=== PATIENT | female | born 1930 | race Caucasian/White ===

== ENCOUNTER 2017-06-11 08:23 | Inpatient (IN) ==
[2017-06-11] MEDS ORDERED: Ondansetron 4 MG/2 ML VIAL IVP ONE ×2 (08:45→10:26)
[2017-06-11] MEDS ORDERED: OXYCODONE Oral CONC 10 MG/0.5 ML ORAL.SYG SL ONE (08:48)
--- NOTE | 2017-06-11 09:07 | Emergency Department Note ---
Disposition Clinical Impression: Hypokalemia Syncope Qualifiers: Syncope type: unspecified Qualified Code(s): R55 - Syncope and collapse Suspected closed fracture of hip Qualifiers: Laterality: right Qualified Code(s): R29.898 - Other symptoms and signs involving the musculoskeletal system Disposition: Admitted As Inpatient Condition: Fair Fall HPI - General Chief Complaint: ED Fall Stated Complaint: Right hip pain after fall Time Seen by Provider: 06/11/17 08:42 Source: patient, family, EMS Mode of arrival: EMS Limitations: no limitations Nursing Notes Reviewed: Yes Vital Signs Reviewed: Yes - History of Present Illness Pt Subjective Complaint: fall Onset (ago): hour(s) ("At 2am") Fall From: standing Fall Witnessed: no Place Fall Occurred: home Loss of Consciousness: none Prolonged Down Time?: yes, hour(s) (2am - 7am) Symptoms Prior to Fall: none Context: other (Patient states, "I just took a step and fell." She told her daughter that it felt like her hip broke and that's what caused her to fall.) Location of injury: hip (right) Location of injury - extremities: Right: hip Severity: moderate (better if not moving - also better since EMS gave her morphine) Quality: sharp, stabbing, aching Associated symptoms (after fall): Reports: unable to walk, lightheaded ("The pain was so bad it made me feel dizzy" ). Denies: headache, neck pain, numbness , weakness, chest pain, shortness of breath, abdominal pain, hematuria, vertigo , confusion - Related Data Home Medications Medication Instructions Recorded Confirmed Lisinopril/Hydrochlorothiazide 1 tab PO DAILY 12/25/15 06/11/17 [Zestoretic 10-12.5 mg Tablet] Cholecalciferol (D-3) [Vitamin D] 1,000 unit PO DAILY 06/11/17 06/11/17 Furosemide [Lasix] 40 mg PO DAILY 06/11/17 06/11/17 Previous Rx's Medication Instructions Recorded predniSONE [PredniSONE] 5 mg PO DAILY #30 tablet 12/25/15 Allergies Allergy/AdvReac Type Severity Reaction Status Date / Time No Known Allergies Allergy Verified 06/11/17 09:07 All systems ED: reviewed and negative except as stated. Review of Systems: As Per HPI Constitutional: Denies: fever, chills, weakness Eyes: Denies: vision change ENT ED: Denies: throat pain, congestion, dysphagia Cardiovascular: Reports: syncope ("Black out spells" per family - for several months. Has been seen by PCP for this. Speculate blood sugar dropping.). Denies : chest pain, palpitations, dyspnea on exertion, orthopnea, edema Respiratory: Denies: cough, dyspnea, wheezes, hemoptysis Gastrointestinal: Denies: abdominal pain, nausea, vomiting Genitourinary: Denies: urgency, dysuria, frequency, hematuria Musculoskeletal: Reports: arthralgia (right hip, recent increase in arhtralgias and myalgias due to d/c of prednisone). 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 Absent: scleral icterus, conjunctival injection - ENT ENT exam: mucous membranes moist - Neck Neck exam: Present: normal inspection, full ROM, trachea midline. Absent: tenderness, meningismus, lymphadenopathy - Expanded Neck Exam Neck exam focused ED: Absent: midline tenderness, paraspinal tenderness, tenderness (other), anterior neck swelling - Chest Chest inspection: Present: normal inspection, symmetric chest wall rise. Absent : tenderness - Respiratory Respiratory exam: Present: normal lung sounds bilaterally. Absent: respiratory distress - Cardiovascular Cardiovascular exam: Present: regular rate, normal rhythm, normal heart sounds - Abdominal Exam Abdominal exam: Present: soft, scar. Absent: tenderness, distention, guarding, rebound, rigidity, ascites, mass, pulsatile mass - Extremities Exam Extremities exam: Present: tenderness, normal capillary refill. Absent: full ROM, joint swelling, calf tenderness - Expanded Lower Extremity Exam Hip/Pelvis exam: Present: normal inspection, tenderness (Right - lateral), internal rotation (mild, right), pelvis stable. Absent: full ROM, swelling, abrasion, laceration, ecchymosis, deformity, crepitus, dislocation, erythema, external rotation, shortening Upper leg exam: Present: normal inspection. Absent: tenderness, swelling, ecchymosis, deformity, erythema Knee exam: Present: normal inspection. Absent: tenderness, swelling, abrasion, erythema Lower leg exam: Present: normal inspection. Absent: tenderness, swelling Ankle exam: Present: normal inspection, full ROM. Absent: tenderness, swelling Foot/toe exam: Present: normal inspection, full ROM. Absent: tenderness, swelling Neurovascular/Tendon exam: Present: normal capillary refill, normal fine/light touch. Absent: pulse deficit, motor deficit, sensory deficit, tendon deficit, extremity cold to touch, pallor, foot drop Gait: not tested/not observed - Back Exam Back exam: Present: normal inspection. Absent: tenderness, paraspinal tenderness, vertebral tenderness, sciatic notch tenderness (R), sciatic notch tenderness (L) - Neurological Exam Neurological exam: Present: alert, oriented X3, CN II-XII intact. Absent: motor sensory deficit - Psychiatric Psychiatric exam: Present: normal affect, normal mood - Skin Skin exam: Present: warm, dry, intact, normal color Course Course Narrative: Patient is brought in by squad for evaluation of right hip pain after a fall that occurred at 2 AM. Patient was finally able to get to her phone and called her son around 7 AM. He and his are going to bring the patient here by private auto. However, when they tried to lift her she had severe pain, so they called the squad. EMS gave the patient 2 mg of morphine. She arrives a and O 3, complaining of mild pain and states that it is "much better than when she was at the house." She she does complain of nausea and is requesting medication for that. She has pain in the right lateral hip. She points to the greater trochanteric area. Pain radiates around the hip. She denies head injury, loss of consciousness, neck pain, chest pain, shortness of breath, paresthesias, fever or recent illness. She has described two different stories as to how she ended up on the floor. She told her [id number] that she got up to walk to the bathroom and felt something break in her hip, which caused her to fall. She told EMS and us upon arrival that she just stepped down and fell and hurt her hip when she landed. She does have multiple skin tears to the right forearm but denies bony pain in the right upper extremity. She denies neck pain or back pain beyond her baseline chronic neck and back pain from severe arthritis. She is pleasant, conversant and cooperative with the exam. X-rays, labs and medications have been ordered. Suspect right hip fracture. Approximately 10 minutes after the initial survey, the tech was preparing to draw blood and called for the nurse. When we entered the room, the patient was resting calmly, still a and O 3 but complaining of increased nausea and stated that she was dizzy when she opened her eyes. The tech describes an episode that lasted approximately 10 seconds whereby the patient suddenly pushed her head and neck back against the bed, closed her eyes and did not respond. This was followed immediately by increased secretions in the mouth and transient confusion. She states that the entire episode lasted about 10 seconds. Fortunately, patient's son and [id number] arrived right after this happened. He states that the patient has had "spells like this." Several times over the past few months. She has been evaluated by her PCP for this. He speculates that she is having episodes of low blood sugar. Accu-Chek was ordered and patient was given juice. Accu-Chek is 134. Patient's oxygen saturation was transiently low, between 89 and 90. She was placed on 2 L oxygen by nasal cannula. Repeat blood pressure is stable, normal heart rate is normal. Initially, pain medication had been ordered per her request. This is now being held. CT of the head has been ordered. CT was read by the radiologist as no acute cerebral abnormality. Cerebral atrophy is noted. CT of the cervical spine was read by the radiologist as no acute abnormality. She does have significant arthritis. Chest x-ray shows mild pulmonary vascular congestion and cardiomegaly. X-ray of the hip is read by the radiologist as no acute bony abnormality. EKG shows a normal sinus rhythm, unchanged compared to previous, normal intervals, normal rate. No ST elevation or depression. The patient lives independently and is reportedly very active. She had a fall and has significant right hip pain. The right hip is very tender to palpation. She has known osteopenia. She is unable to bear weight on the right lower extremity. Still suspect right hip fracture. Patient has had multiple brief syncopal episodes lately including one while being evaluated here in the ER. Her fall at 2 AM today may have been secondary to a syncopal episode as well. We will consult ortho and admit the patient to medicine. - Consultations Consultation #1: Case was discussed with hospitalist. He is in agreement to admit the patient. Consultation #2: Case was discussed with Dr. Luna. He recommends MRI of the hips and pelvis and will consult on the patient Vital Signs Temperature 98.4 F 06/11/17 08:25 Pulse Rate 90 06/11/17 08:25 Respiratory Rate 18 06/11/17 08:25 Blood Pressure 133/69 06/11/17 08:25 O2 Sat by Pulse Oximetry 98 06/11/17 08:25 Temperature 98.5 F 06/11/17 15:00 Pulse Rate 87 06/11/17 15:00 Respiratory Rate 16 06/11/17 15:00 Blood Pressure 126/58 06/11/17 15:00 O2 Sat by Pulse Oximetry 96 06/11/17 15:00 Oxygen Delivery Oxygen Delivery Nasal Cannula Fall - Medical Records Medical records reviewed: Yes I reviewed the patient's medical records. - Lab Data Lab results reviewed: Yes I reviewed the patient's lab results. Lab results narrative: Laboratory Last Values WBC 13.3 K/mcL (4.3-11.1) H 06/11/17 09: RBC 4.08 M/mcL (3.82-4.97) 06/11/17 09:01 Hgb 12.7 g/dL (11.5-15.4) 06/11/17 09:01 Hct 36.8 % (35.3-44.9) 06/11/17 09: MCV 90.2 fL (83.0-100.0) 06/11/17 09:01 MCH 31.1 pg (28.0-33.3) 06/11/17 09:01 MCHC 34.5 g/dL (31.6-35.5) 06/11/17 09:01 RDW 14.2 % (11.5-14.5) 06/11/17 09:01 Plt Count 185 K/mcL (140-400) 06/11/17 09:01 MPV 10.9 fL (9.4-12.4) 06/11/17 09: Immature Gran % 1.4 % (0-4) 06/11/17 09: Seg Neutrophils % 79.3 % 06/11/17 09: Lymphocytes % 13.7 % 06/11/17 09: Monocytes % 4.9 % 06/11/17 09: Eosinophils % 0.1 % 06/11/17 09: Basophils % 0.6 % 06/11/17 09: Neutrophils # 10.5 K/mcL (1.6-8.9) H 06/11/17 09: Lymphocytes # 1.8 K/mcL (0.6-4.6) 06/11/17 09: Monocytes # 0.7 K/mcL (0.0-1.3) 06/11/17 09: Eosinophils # 0.0 K/mcL (0.0-0.6) 06/11/17 09: Basophils # 0.1 K/mcL (0.0-0.2) 06/11/17 09: Sodium 134 mEq/L (136-145) L 06/11/17 09: Potassium 3.0 mEq/L (3.5-5.1) L 06/11/17 09: Chloride 99 mEq/L (98-107) 06/11/17 09: Carbon Dioxide 26 mEq/L (23-29) 06/11/17 09: BUN 20 mg/dL (8-23) 06/11/17 09: Creatinine 0.98 mg/dL (0.60-1.20) 06/11/17 09: Est GFR ( Amer) > 60 (> 60) 06/11/17 09: Est GFR (Non-Af Amer) 54 (> 60) L 06/11/17 09: BUN/Creatinine Ratio 20 (6-26) 06/11/17 09:01 Glucose 136 mg/dL (70-105) H 06/11/17 09:01 POC Glucose 183 (58-89) H 06/11/17 15:53 Calculated Osmolality 283 (280-300) 06/11/17 09:01 Calcium 9.2 mg/dL (8.6-10.3) 06/11/17 09:01 Creatine Kinase 54 Units/L (30-223) 06/11/17 14:23 Troponin I < 0.03 ng/mL (< 0.04) 06/11/17 14:23 Urine Color Yellow (Yellow) 06/11/17 11:20 Urine Clarity Clear (Clear) 06/11/17 11:20 Urine pH 8.0 pH Units (5.0-8.0) 06/11/17 11:20 Ur Specific [place] 1.019 (1.010-1.025) 06/11/17 11:20 Urine Protein 30 mg/dL (Neg-Trace) H 06/11/17 11:20 Urine Glucose (UA) Normal mg/dL (Normal) 06/11/17 11:20 Urine Ketones Negative mg/dL (Negative) 06/11/17 11:20 Urine Blood Negative (Negative) 06/11/17 11:20 Urine Nitrite Negative (Negative) 06/11/17 11:20 Urine Bilirubin Negative (Negative) 06/11/17 11:20 Urine Urobilinogen Normal mg/dL (Normal) 06/11/17 11:20 Ur Leukocyte Esterase Negative (Negative) 06/11/17 11:20 Urine Microscopic RBC 0-3 per hpf (0-3) 06/11/17 11:20 Urine Microscopic WBC 0-3 per hpf (0-3) 06/11/17 11:20 Ur Squamous Epith Cells Moderate per lpf (None-Few) H 06/11/17 11:20 Urine Bacteria None Seen per hpf (None-Few) 06/11/17 11:20 Hyaline Casts None Seen per lpf (None-Few) 06/11/17 11:20 Ur Culture Indicated? NO (NO) 06/11/17 11:20 Result diagrams: 06/11/17 09:01 06/11/17 09:01 Lab Results 06/11/17 06/11/17 06/11/17 Range/Units 09:01 09:01 09:05 WBC 13.3 H (4.3-11.1) K/mcL RBC 4.08 (3.82-4.97) M/mcL Hgb 12.7 (11.5-15.4) g/dL Hct 36.8 (35.3-44.9) % MCV 90.2 (83.0-100.0) fL MCH 31.1 (28.0-33.3) pg MCHC 34.5 (31.6-35.5) g/dL RDW 14.2 (11.5-14.5) % Plt Count 185 (140-400) K/mcL MPV 10.9 (9.4-12.4) fL Immature Gran % 1.4 (0-4) % Seg Neutrophils % 79.3 % Lymphocytes % 13.7 % Monocytes % 4.9 % Eosinophils % 0.1 % Basophils % 0.6 % Neutrophils # 10.5 H (1.6-8.9) K/mcL Lymphocytes # 1.8 (0.6-4.6) K/mcL Monocytes # 0.7 (0.0-1.3) K/mcL Eosinophils # 0.0 (0.0-0.6) K/mcL Basophils # 0.1 (0.0-0.2) K/mcL Sodium 134 L (136-145) mEq/L Potassium 3.0 L (3.5-5.1) mEq/L Chloride 99 (98-107) mEq/L Carbon Dioxide 26 (23-29) mEq/L BUN 20 (8-23) mg/dL Creatinine 0.98 (0.60-1.20) mg/dL Est GFR ( Amer) > 60 (> 60) Est GFR (Non-Af Amer) 54 L (> 60) BUN/Creatinine Ratio 20 (6-26) Glucose 136 H (70-105) mg/dL POC Glucose 135 H (58-89) Calculated Osmolality 283 (280-300) Calcium 9.2 (8.6-10.3) mg/dL Creatine Kinase 69 (30-223) Units/L Troponin I < 0.03 (< 0.04) ng/mL Urine Color (Yellow) Urine Clarity (Clear) Urine pH (5.0-8.0) pH Units Ur Specific [place] (1.010-1.025) Urine Protein (Neg-Trace) mg/dL Urine Glucose (UA) (Normal) mg/dL Urine Ketones (Negative) mg/dL Urine Blood (Negative) Urine Nitrite (Negative) Urine Bilirubin (Negative) Urine Urobilinogen (Normal) mg/dL Ur Leukocyte Esterase (Negative) Urine Microscopic RBC (0-3) per hpf Urine Microscopic WBC (0-3) per hpf Ur Squamous Epith Cells (None-Few) per lpf Urine Bacteria (None-Few) per hpf Hyaline Casts (None-Few) per lpf Ur Culture Indicated? (NO) 06/11/17 06/11/17 06/11/17 Range/Units 11:20 14:23 14:23 WBC (4.3-11.1) K/mcL RBC (3.82-4.97) M/mcL Hgb (11.5-15.4) g/dL Hct (35.3-44.9) % MCV (83.0-100.0) fL MCH (28.0-33.3) pg MCHC (31.6-35.5) g/dL RDW (11.5-14.5) % Plt Count (140-400) K/mcL MPV (9.4-12.4) fL Immature Gran % (0-4) % Seg Neutrophils % % Lymphocytes % % Monocytes % % Eosinophils % % Basophils % % Neutrophils # (1.6-8.9) K/mcL Lymphocytes # (0.6-4.6) K/mcL Monocytes # (0.0-1.3) K/mcL Eosinophils # (0.0-0.6) K/mcL Basophils # (0.0-0.2) K/mcL Sodium (136-145) mEq/L Potassium (3.5-5.1) mEq/L Chloride (98-107) mEq/L Carbon Dioxide (23-29) mEq/L BUN (8-23) mg/dL Creatinine (0.60-1.20) mg/dL Est GFR ( Amer) (> 60) Est GFR (Non-Af Amer) (> 60) BUN/Creatinine Ratio (6-26) Glucose (70-105) mg/dL POC Glucose (58-89) Calculated Osmolality (280-300) Calcium (8.6-10.3) mg/dL Creatine Kinase 54 (30-223) Units/L Troponin I < 0.03 (< 0.04) ng/mL Urine Color Yellow (Yellow) Urine Clarity Clear (Clear) Urine pH 8.0 (5.0-8.0) pH Units Ur Specific [place] 1.019 (1.010-1.025) Urine Protein 30 H (Neg-Trace) mg/dL Urine Glucose (UA) Normal (Normal) mg/dL Urine Ketones Negative (Negative) mg/dL Urine Blood Negative (Negative) Urine Nitrite Negative (Negative) Urine Bilirubin Negative (Negative) Urine Urobilinogen Normal (Normal) mg/dL Ur Leukocyte Esterase Negative (Negative) Urine Microscopic RBC 0-3 (0-3) per hpf Urine Microscopic WBC 0-3 (0-3) per hpf Ur Squamous Epith Cells Moderate H (None-Few) per lpf Urine Bacteria None Seen (None-Few) per hpf Hyaline Casts None Seen (None-Few) per lpf Ur Culture Indicated? NO (NO) 06/11/17 Range/Units 15:53 WBC (4.3-11.1) K/mcL RBC (3.82-4.97) M/mcL Hgb (11.5-15.4) g/dL Hct (35.3-44.9) % MCV (83.0-100.0) fL MCH (28.0-33.3) pg MCHC (31.6-35.5) g/dL RDW (11.5-14.5) % Plt Count (140-400) K/mcL MPV (9.4-12.4) fL Immature Gran % (0-4) % Seg Neutrophils % % Lymphocytes % % Monocytes % % Eosinophils % % Basophils % % Neutrophils # (1.6-8.9) K/mcL Lymphocytes # (0.6-4.6) K/mcL Monocytes # (0.0-1.3) K/mcL Eosinophils # (0.0-0.6) K/mcL Basophils # (0.0-0.2) K/mcL Sodium (136-145) mEq/L Potassium (3.5-5.1) mEq/L Chloride (98-107) mEq/L Carbon Dioxide (23-29) mEq/L BUN (8-23) mg/dL Creatinine (0.60-1.20) mg/dL Est GFR ( Amer) (> 60) Est GFR (Non-Af Amer) (> 60) BUN/Creatinine Ratio (6-26) Glucose (70-105) mg/dL POC Glucose 183 H (58-89) Calculated Osmolality (280-300) Calcium (8.6-10.3) mg/dL Creatine Kinase (30-223) Units/L Troponin I (< 0.04) ng/mL Urine Color (Yellow) Urine Clarity (Clear) Urine pH (5.0-8.0) pH Units Ur Specific [place] (1.010-1.025) Urine Protein (Neg-Trace) mg/dL Urine Glucose (UA) (Normal) mg/dL Urine Ketones (Negative) mg/dL Urine Blood (Negative) Urine Nitrite (Negative) Urine Bilirubin (Negative) Urine Urobilinogen (Normal) mg/dL Ur Leukocyte Esterase (Negative) Urine Microscopic RBC (0-3) per hpf Urine Microscopic WBC (0-3) per hpf Ur Squamous Epith Cells (None-Few) per lpf Urine Bacteria (None-Few) per hpf Hyaline Casts (None-Few) per lpf Ur Culture Indicated? (NO) - Radiology Data Radiology results reviewed: Yes I reviewed the patient's radiology results. Chest X-Ray 06/11/17 08:45 IMPRESSION: Cardiomegaly. Suspected mild vascular congestion with small pleural effusions. D/ / 06/11/2017 09:51:59 Radha Wright MD / jarrett Interpreting Provider: Radha Wright MD Hip X-Ray 06/11/17 08:45 IMPRESSION: No acute abnormality in the pelvis or right hip. Given the degree of osteopenia, nondisplaced fractures may be radiographically occult. If pain or concern for fracture persists, consider MR imaging. D/ / 06/11/2017 10:08:14 Dayo Garcia MD / chrissy Interpreting Provider: Dayo Garcia MD Cervical Spine CT 06/11/17 09:07 IMPRESSION: 1. No acute abnormality in the cervical spine 2. Enlarged left thyroid lobe measuring 4 cm in size. Nonemergent thyroid ultrasound suggested to better characterize. RECOMMENDATIONS: Nonemergent thyroid ultrasound. D/ / Dayo Garcia MD / Dayo Garcia MD Interpreting Provider: Dayo Garcia MD Head CT 06/11/17 09:07 IMPRESSION: Cerebral atrophy. Chronic small vessel ischemic changes. No acute brain parenchymal abnormality. D/ / 06/11/2017 10:06:43 Radha Wright MD / chrissy Interpreting Provider: Radha Wright MD Hip MRI 06/11/17 10:59 IMPRESSION: 1. Acute nondisplaced right femoral neck fracture. 2. High-grade strain of the common origin of the right biceps femoris and semitendinosis hamstring muscles. This is age-indeterminate. 3. Mild right hip degenerative changes with a reactive effusion. D/ / Saúl Ramirez MD / Saúl Ramirez MD Interpreting Provider: Saúl Ramirez MD Pelvis MRI 06/11/17 10:59 IMPRESSION: 1. Acute nondisplaced right femoral neck fracture. 2. High-grade strain of the common origin of the right biceps femoris and semitendinosis hamstring muscles. This is age-indeterminate. 3. Mild right hip degenerative changes with a reactive effusion. D/ / Saúl Ramirez MD / Saúl Ramirez MD Interpreting Provider: Saúl Ramirez MD - EKG Data EKG attestation: Yes I reviewed and interpreted this EKG. EKG shows normal: sinus rhythm Rate: normal Rhythm: NSR [place]/QRS: normal Interpretation: unchanged when compared to prior tracing (date)
[2017-06-11 09:21] LABS: Basophils # 0.1 K/mcL (0.0-0.2); Basophils % 0.6 %; Eosinophils % 0.1 %; Hematocrit 36.8 % (35.3-44.9); Hemoglobin 12.7 g/dL (11.5-15.4); Immature Granulocytes % 1.4 % (0-4); Lymphocytes # 1.8 K/mcL (0.6-4.6); Lymphocytes % 13.7 %; Mean Corpuscular HGB Conc 34.5 g/dL (31.6-35.5); Mean Corpuscular Hemoglobin 31.1 pg (28.0-33.3); Mean Corpuscular Volume 90.2 fL (83.0-100.0); Mean Platelet Volume 10.9 fL (9.4-12.4); Monocytes # 0.7 K/mcL (0.0-1.3); Monocytes % 4.9 %; Neutrophils # 10.5 K/mcL (1.6-8.9); Platelet Count 185 K/mcL (140-400); Red Blood Count 4.08 M/mcL (3.82-4.97); Red Cell Distribution Width 14.2 % (11.5-14.5); Segmented Neutrophils % 79.3 %
[2017-06-11 09:39] LABS: Troponin I < 0.03 ng/mL (< 0.04)
[2017-06-11 09:44] LABS: BUN/Creatinine Ratio 20 (6-26); Blood Urea Nitrogen 20 mg/dL (8-23); Calcium 9.2 mg/dL (8.6-10.3); Carbon Dioxide 26 mEq/L (23-29); Chloride 99 mEq/L (98-107); Creatine Kinase 69 Units/L (30-223); Glucose 136 mg/dL (70-105); Osmolality,Calculated 283 (280-300); Sodium 134 mEq/L (136-145); eGFR For African Americans > 60 (> 60); eGFR For Non-African Americans 54 (> 60)
[2017-06-11] MEDS ORDERED: Acetaminophen 325 MG TABLET PO PRN (10:45)
[2017-06-11] MEDS ORDERED: traMADol 50 MG TABLET PO PRN (10:45)
[2017-06-11] MEDS ORDERED: Naloxone 0.4 MG/ML INJ IVP PRN (10:45)
[2017-06-11] MEDS ORDERED: Potassium Chloride 40 MEQ, Lidocaine 1% 2 ML in D5% in Water 500 ML IVPB ONE (10:47)
[2017-06-11 11:25] LABS: Bilirubin,Urine Negative (Negative); Blood,Urine Negative (Negative); Clarity,Urine Clear (Clear); Color,Urine Yellow (Yellow); Glucose,Urine (UA) Normal (Normal); Ketones,Urine Negative (Negative); Leukocyte Esterase,Urine Negative (Negative); Nitrite,Urine Negative (Negative); Protein,Urine 30 mg/dL (Neg-Trace); Specific Gravity,Urine 1.019 (1.010-1.025); Urobilinogen,Urine Normal (Normal)
[2017-06-11 11:30] LABS: Bacteria,Urine None Seen per hpf (None-Few); Hyaline Casts,Urine None Seen per lpf (None-Few); RBC,Urine 0-3 per hpf (0-3); Squamous Epithelial Cell,Urine Moderate per lpf (None-Few); WBC,Urine 0-3 per hpf (0-3)
--- NOTE | 2017-06-11 13:57 | Internal Med History&Physical ---
Date of Encounter: 06/11/17 Time of Encounter: 10:50 Assessment and Plan (1) Closed fracture of part of neck of femur Current visit: Yes Status: Acute Admit the pt into Med Surg Reviewed her Hip X ray did not show any acute fracture Reviewed MRI of Hip showed closed non displaced Rt femoral neck fracture Ortho consulted NPO after mid night She is intermediate to high risk pt for Major surgery like Hip repair given her chronic steroid dependency and immuno suppressive state IV hydration Pt is very sensitive to pain medication so will start her on Percocet PO PRN Cont home dose of steroids During surgery time may need stress dose steroids will talk to Ortho will get 2 D Echo Talked to pt's family at bed side and explained to them about current care Qualifiers: Qualified Code(s): S72.001A - Fracture of unspecified part of neck of right femur, initial encounter for closed fracture (2) Near syncope Current visit: Yes Status: Acute She denied of any LOC However she did mention of some near syncopal episodes recently so will do 2 D Echo and Carotid doppler placed her on Tele (3) Hypertension Current visit: No Status: Acute Stable with home medications Qualifiers: Hypertension type: essential hypertension Qualified Code(s): I10 - Essential (primary) hypertension (4) Polymyalgia rheumatica Current visit: No Status: Acute Resumed home dose of steroids (5) DVT prophylaxis Current visit: No Status: Acute On SQ heparin Internal Medicine - H&P: HPI Chief complaint: Fall, Rt hip pain Admitted From: Emergency Dept Plans for Post Hospital Care: Home History of present illness: Ms. Jade is a 86 year old female with known past medical history of Polymyalgia rheumatica on chronic steroid dependent, HTN, HLD, DJD and GI bleed pt presented to ER with severe Rt hip pain, started after a fall this morning at 2. 00 AM. Pt stated when she went to restroom, her Rt leg gave up and had fall , developed severe Rt hip pain. She denied any loss of consciousness. However she was not able to stand up, so she had crawl in to her living room to get the cell phone. She does have lacerations over Rt fore arm and Rt knee. Pt denied any CP / SOB Past Med Surg Social Fam HX - Past Medical History Medical history: CHF, GI bleed, hyperlipidemia, hypertension, other Psychiatric history: no psych history - Past Surgical History Surgical History: appendectomy, hysterectomy, other - Social History Smoking Status: Former smoker Smokeless Tobacco Status: No Alcohol use: none Drug use: none - Family History Mother Adopted: No Family Member Ethnicity: Non- Living Status: Hx Family Neurologic Disorders: Yes Internal Medicine - H&P: Meds Lisinopril/Hydrochlorothiazide [Zestoretic 10-12.5 mg Tablet] 1 tab PO DAILY [History] predniSONE [PredniSONE] 5 mg PO DAILY #30 tablet 12/25/15 [Rx] Cholecalciferol (D-3) [Vitamin D] 1,000 unit PO DAILY 06/11/17 [History] Furosemide [Lasix] 40 mg PO DAILY 06/11/17 [History] 3 Allergy/AdvReac Type Severity Reaction Status Date / Time No Known Allergies Allergy Verified 06/11/17 09:07 All Systems PM: A 10-system review of systems was performed and is negative for pertinent findings except as documented above in the HPI. Review of systems: All the systems are reviewed everything is benign except the systems and symptoms I mentioned in the history of present illness - Constitutional Vitals: Temp Pulse Resp BP Pulse Ox 98.4 F 95 22 121/55 95 06/11/17 08:25 06/11/17 10:40 06/11/17 10:40 06/11/17 10:40 06/11/17 10:40 General appearance: Present: cooperative, mild distress, A&O X 3, answers questions appropriately - Head Head exam: Present: atraumatic, normal inspection - Neck Neck exam general surgery: Present: supple - Respiratory Respiratory exam: Present: decreased breath sounds. Absent: rales, respiratory distress, rhonchi, wheezes - Cardiovascular Cardiovascular exam: Present: RRR, +S1, +S2. Absent: systolic murmur, tachycardia - GI/Abdominal GI/Abdominal exam: Present: normal bowel sounds, soft. Absent: rebound, rigid, tenderness - Extremities Exam Extremities exam: Present: tenderness (severe tenderness in Rt hip). Absent: calf tenderness, pedal edema Additional comments: unable to move Rt hip - Back Exam Back exam: Absent: CVA tenderness (L), CVA tenderness (R) - Neurological Exam Neurological exam: Present: alert, oriented X3, no focal deficits - Psychiatric Psychiatric exam: Present: depressed - Skin Additional comments: laceration over Rt knee and Rt forearm Internal Med - H&P Results - Labs CBC & Chem 7: 06/11/17 09:01 06/11/17 09:01 Labs: Urine 06/11/17 Range/Units 11:20 Urine Color Yellow (Yellow) Urine Clarity Clear (Clear) Urine pH 8.0 (5.0-8.0) pH Units Ur Specific [place] 1.019 (1.010-1.025) Urine Protein 30 H (Neg-Trace) mg/dL Urine Glucose (UA) Normal (Normal) mg/dL
[2017-06-11] MEDS ORDERED: Ondansetron 4 MG/2 ML VIAL IVP PRN (15:01)
[2017-06-11] MEDS ORDERED: *HR* Promethazine 25 MG/ML VIAL IVP PRN (15:14)
[2017-06-11] MEDS: 0.9 % Sodium Chloride 1,000 ML IVC SCH (15:28)
[2017-06-11] MEDS: *HR* OxyCODONE/APAP 5/325 TABLET PO PRN (15:52)
--- NOTE | 2017-06-11 16:56 | Orthopedic Consult Note ---
Date of Encounter: 06/11/17 Time of Encounter: 16:54 Assessment and Plan (1) Closed fracture of part of neck of femur Current Visit: Yes Status: Acute The diagnosis and treatment plan were discussed with the patient and her family. She has afracture of the right femoral neck. Previously she was walking both with and without a walker. Due to the acute nature of her fracture and her previous activity level surgical fixation with percutaneous pinning of the right hip is recommended. The risks and benefits of the procedure were reviewed with the family and the patient including but not limited to the risk of infection, neurovascular injury, continued pain or stiffness, failure of surgery, reinjury, or need for additional surgery, DVT, PE , general risks of anesthesia and loss of limb or life. No guarantees were given or implied and all questions were answered. The patient and family understands all the risks and does wish to proceed with written consent. We will proceed tomorrow. Nothing by mouth midnight with bed rest. Qualifiers: Encounter type: initial encounter Laterality: right Qualified Code(s): S72.001A - Fracture of unspecified part of neck of right femur, initial encounter for closed fracture History of Present Illness Chief complaint: R hip fracture HPI: Ms. Jade is a 86 year old female who had a fall this morning on to her right hip. She had immediate pain in the right hip. She was unable to ambulate. She denies any loss of consciousness before the fall. She has no new pain in any of her other extremities. Denies any numbness, tingling or neuro complaints. No chest pain or shortness of breath currently. Past Med Surg Social Fam HX - Past Medical History Medical history: CHF, GI bleed, hyperlipidemia, hypertension, other Psychiatric history: no psych history - Past Surgical History Surgical History: appendectomy, hysterectomy, other - Social History Smoking Status: Former smoker Smokeless Tobacco Status: No Alcohol use: none Drug use: none - Family History Mother Adopted: No Family Member Ethnicity: Non- Living Status: Hx Family Neurologic Disorders: Yes Medications and Allergies Lisinopril/Hydrochlorothiazide [Zestoretic 10-12.5 mg Tablet] 1 tab PO DAILY [History] predniSONE [PredniSONE] 5 mg PO DAILY #30 tablet 12/25/15 [Rx] Cholecalciferol (D-3) [Vitamin D] 1,000 unit PO DAILY 06/11/17 [History] Furosemide [Lasix] 40 mg PO DAILY 06/11/17 [History] 3 Allergy/AdvReac Type Severity Reaction Status Date / Time No Known Allergies Allergy Verified 06/11/17 09:07 All Systems Reviewed: The remainder of the systems were reviewed and are negative Physical Exam - Constitutional Vitals: Temp Pulse Resp BP Pulse Ox 98.5 F 87 16 126/58 96 06/11/17 15:00 06/11/17 15:00 06/11/17 15:00 06/11/17 15:00 06/11/17 15:00 Exam: Consult Exam: Constitutional -Vitals reviewed -The patient is well developed and well nourished. -The patient is well groomed. Psychiatric -The patient is fully alert and oriented x 3. Respiratory: -Respiratory effort normal Abdomen: -Soft abdomen -Non tender -Non distended: Left upper extremity: -No deformities. The overlying skin is intact. No obvious signs of acute trauma. -No tenderness to palpation throughout. -No significant pain with passive motion of the shoulder, elbow, wrist, and fingers within the limits of the bed. -Able to make an "OK" sign, cross the index and long fingers, and extend the thumb. -Sensation grossly intact to light touch throughout the median, radial, and ulnar distributions. -Radial pulse is present; Fingers have good capillary refill. Right upper extremity: -No deformities. The overlying skin is intact. No obvious signs of acute trauma. -No tenderness to palpation throughout. -No significant pain with passive motion of the shoulder, elbow, wrist, and fingers within the limits of the bed. -Able to make an "OK" sign, cross the index and long fingers, and extend the thumb. -Sensation grossly intact to light touch throughout the median, radial, and ulnar distributions. -Radial pulse is present; Fingers have good capillary refill. Left lower extremity: -No deformities. The overlying skin is intact. No obvious signs of acute trauma. -No tenderness to palpation throughout. -No pain with passive motion of the hip, knee, ankle, and toes within the limits of the bed. -No pain with axial loading of the thigh. -Able to dorsiflex and plantarflex the ankle and toes. -Sensation is grossly intact to light touch throughout the sural, saphenous, superficial peroneal, and deep peroneal distributions. -Toes have good capillary refill. Right lower extremity: -No deformities. The overlying skin is intact. -Pain with logroll and internal rotation at the hip. -Able to dorsiflex and plantarflex the ankle and toes. -Sensation is grossly intact to light touch throughout the sural, saphenous, superficial peroneal, and deep peroneal distributions. -Toes have good capillary refill. Results - Labs Result Diagrams: 06/11/17 09:06/11/17 09:01 Labs: Abnormal lab results WBC 13.3 K/mcL (4.3-11.1) H 06/11/17 09: Neutrophils # 10.5 K/mcL (1.6-8.9) H 06/11/17 09: Sodium 134 mEq/L (136-145) L 06/11/17 09: Potassium 3.0 mEq/L (3.5-5.1) L 06/11/17 09: Est GFR (Non-Af Amer) 54 (> 60) L 06/11/17 09:01 Glucose 136 mg/dL (70-105) H 06/11/17 09:01 POC Glucose 183 (58-89) H 06/11/17 15:53 Urine Protein 30 mg/dL (Neg-Trace) H 06/11/17 11:20 Ur Squamous Epith Cells Moderate per lpf (None-Few) H 06/11/17 11:20 All other labs normal. - Diagnostic results Hip MRI: report reviewed, image reviewed (Nondisplaced fracture of the right femoral neck) Consult Discharge Plan - Plan Referrals: Jose Manuel Diaz Jr, MD [Primary Care Provider] -
[2017-06-11] MEDS: *HR* Heparin 5,000 UNIT/ML VIAL SQ SCH (18:32)
[2017-06-12 01:53] LABS: Basophils # 0.1 K/mcL (0.0-0.2); Eosinophils % 0.2 %; Hemoglobin 11.9 g/dL (11.5-15.4); Immature Granulocytes % 1.8 % (0-4); Lymphocytes # 1.3 K/mcL (0.6-4.6); Lymphocytes % 13.2 %; Mean Corpuscular Hemoglobin 31.3 pg (28.0-33.3); Mean Corpuscular Volume 92.1 fL (83.0-100.0); Mean Platelet Volume 11.2 fL (9.4-12.4); Monocytes # 0.8 K/mcL (0.0-1.3); Neutrophils # 7.6 K/mcL (1.6-8.9); Platelet Count 161 K/mcL (140-400); Red Cell Distribution Width 14.7 % (11.5-14.5); Segmented Neutrophils % 75.8 %
[2017-06-12] MEDS: *HR* OxyCODONE/APAP 5/325 TABLET PO PRN (01:56)
[2017-06-12 02:11] LABS: Calcium 8.7 mg/dL (8.6-10.3); Chol/HDL Ratio 3.6 (0-4.9); Potassium 4.2 mEq/L (3.5-5.1)
[2017-06-12] MEDS: *HR* Heparin 5,000 UNIT/ML VIAL SQ SCH ×2 (04:23→16:40)
[2017-06-12] MEDS: 0.9 % Sodium Chloride 1,000 ML IVC SCH ×2 (08:24→19:56)
[2017-06-12 08:57] LABS: Albumin 3.2 g/dL (3.5-5.7); Albumin/Globulin Ratio 1.6 (1.1-2.2); Calcium 8.6 mg/dL (8.6-10.3); Total Protein 5.2 g/dL (6.4-8.9)
[2017-06-12] MEDS ORDERED: predniSONE 5 MG TABLET PO SCH (09:00)
[2017-06-12] MEDS ORDERED: Cholecalciferol (D-3) 1,000 UNIT TABLET PO SCH (09:00)
--- NOTE | 2017-06-12 09:50 | Anesthesia Evaluation PreOp ---
Date of Encounter: 06/12/17 Time of Encounter: 09:47 - Past History Planned Operation: right perc pinning of hip Cardiac History: CHF, HTN, Hyperlipidemia, Other (several near syncopal episodes ) Pulmonary History: Former smoker CURRICULUM AND ASSESSMENT COORDINATOR History: Other (4cm thyroid nodule found on CT.) Other Medical History: Renal (acute on chronic renal failure), Bleeding ( previous GI bleeding,), Other (polymyalgia rheumatica - chronic steriod tx) Anesthesia History: Past Anesthesia (appy, hyster,), Problems (PONV severe) Alcohol Use: none Drug use: none Medications and Allergies Lisinopril/Hydrochlorothiazide [Zestoretic 10-12.5 mg Tablet] 1 tab PO DAILY [History] predniSONE [PredniSONE] 5 mg PO DAILY #30 tablet 12/25/15 [Rx] Cholecalciferol (D-3) [Vitamin D] 1,000 unit PO DAILY 06/11/17 [History] Furosemide [Lasix] 40 mg PO DAILY 06/11/17 [History] 3 Allergy/AdvReac Type Severity Reaction Status Date / Time No Known Allergies Allergy Verified 06/11/17 09:07 - Meds/Allergy Pre-op Review Medications Reviewed: Yes Allergies Reviewed: Yes Beta Blockers on Current Med List: No Anesthesia Results - Labs 06/12/17 01:28 06/12/17 08:14 - Imaging EKG: report reviewed, image reviewed (SR) Anesthesia Exam Last Vital Signs Temp 100.1 F H 06/12/17 07:02 Pulse 88 06/12/17 07:02 Resp 18 06/12/17 07:02 BP 106/55 06/12/17 07:02 Pulse Ox 93 06/12/17 07:02 Weight: 79 kg NPO (# of Hours): > 8 hrs - HEENT Pupil (Motor): Pupils equal, EOMI Mallampati: III Teeth: Edentulous Denture Type: Upper: Complete, Lower: Complete Oral Opening: Greater than 3 - CURRICULUM AND ASSESSMENT COORDINATOR LOC: Oriented - Cardiac Rhythm: Regular Murmur: None - Pulmonary Breath Sounds: bilateral Clear Respiratory Effort: Symmetrical Anesthesia Assess/Plan ASA Score: 3 Modified Maddy Scale for Level of Consciousness: Cooperative, oriented, and tranquil Anesthetic Plan: General, Precautions (TIVA, stress dose steroids) Monitoring Plan: Standard Monitors Recovery Plan: PACU
[2017-06-12] MEDS ORDERED: Hydrocortisone Sodium Succ 100 MG/2 ML VIAL ONE (10:10)
[2017-06-12] MEDS ORDERED: *HR* PHENYLEPHRINE 1,000 MCG/10 ML SYRINGE IVP ONE (10:25)
[2017-06-12] MEDS ORDERED: Propofol 500 MG/50 ML INFUS..BTL ONE (10:25)
[2017-06-12] MEDS ORDERED: *HR* FentaNYL (PF) 100 MCG/2 ML VIAL ONE ×2 (10:31→11:17)
[2017-06-12] MEDS ORDERED: EPHEDrine 50 MG/ML VIAL ONE (10:32)
[2017-06-12] MEDS ORDERED: *HR* Etomidate 40 MG/20 ML VIAL IVP ONE (10:33)
[2017-06-12] MEDS ORDERED: Lacri-Lube 3.5 GM TUBE ONE (10:37)
[2017-06-12] MEDS ORDERED: Lidocaine -MPF 2% 2 ML VIAL ONE (10:55)
--- NOTE | 2017-06-12 10:58 | Internal Med Progress Note ---
Date of Encounter: 06/12/17 Time of Encounter: 10:56 - Assessment and plan (1) Closed fracture of part of neck of femur Current Visit: Yes Status: Acute Assessment and plan: - right femur neck closed fracture, revealed on MRI. - Ortho consulted and planned surgery today. Qualifiers: Encounter type: initial encounter Laterality: right Qualified Code(s): S72.001A - Fracture of unspecified part of neck of right femur, initial encounter for closed fracture (2) Near syncope Current Visit: Yes Status: Acute Assessment and plan: - pending ECHO and carotid doppler. continue tele monitoring. (3) Polymyalgia rheumatica Current Visit: No Status: Acute Assessment and plan: - continue steroid, no need for stress dose for surgery. (4) Hypertension Current Visit: No Status: Acute Assessment and plan: - well controlled. Qualifiers: Hypertension type: essential hypertension Qualified Code(s): I10 - Essential (primary) hypertension (5) Creatinine elevation Current Visit: Yes Status: Acute Assessment and plan: - sudden rise of creatinine, not sure this is lab error or true STEPHAN. - will repeat RFP today. - Time Spent With Patient Greater than 35 minutes - Subjective Interval history: Pt is going to have surgery today. - Constitutional Vitals: Temp Pulse Resp BP Pulse Ox 100.1 F H 88 18 106/55 93 06/12/17 07:02 06/12/17 07:02 06/12/17 07:02 06/12/17 07:02 06/12/17 07:02 General appearance: Present: cooperative, mild distress, A&O X 3, answers questions appropriately Exam: PHYSICAL EXAMINATION: GENERAL APPEARANCE: The patient is alert, oriented and in no acute distress. HEENT: Head is normocephalic. The sinuses are nontender. Pupils are equal and reactive. The nares are patent. Oropharynx clear without lesions. NECK: Supple without lymphadenopathy. HEART: Regular rate and rhythm. LUNGS: No crackles or wheezes are heard. ABDOMEN: Soft, nontender, nondistended with good bowel sounds heard. Inguinal area is normal. EXTREMITIES: right leg limited mobility and pain, positive pulse. NEUROLOGICAL: Gross nonfocal. SKIN: Warm and dry without any rash. Internal Medicine: Result - Labs CBC & Chem 7: 06/12/17 01:28 06/12/17 08:14 Labs: Short CBC 06/12/17 Range/Units 01:28 WBC 10.0 (4.3-11.1) K/mcL Hgb 11.9 (11.5-15.4) g/dL Hct 35.0 L (35.3-44.9) % Plt Count 161 (140-400) K/mcL Neutrophils # 7.6 (1.6-8.9) K/mcL BMP 06/12/17 06/12/17 01:28 08:14 Sodium 130 L 132 L Potassium 4.2 D 4.0 Chloride 100 100 Carbon Dioxide 21 L 25 BUN 27 H 27 H Creatinine 2.15 H 2.04 H Glucose 129 H 126 H Calcium 8.7 8.6 Cardiac Enzymes 06/11/17 Range/Units 20:55 Troponin I < 0.03 (< 0.04) ng/mL Liver Function 06/12/17 Range/Units 08:14 Total Bilirubin 1.0 (0.3-1.0) mg/dL AST 17 (13-39) Units/L ALT 24 (7-52) Units/L Alkaline Phosphatase 22 L (34-104) Units/L Albumin 3.2 L (3.5-5.7) g/dL Consult Discharge Plan - Plan Referrals: Jose Manuel Diaz Jr, MD [Primary Care Provider] -
[2017-06-12] MEDS ORDERED: Dexamethasone 4 MG/ML VIAL ONE (11:09)
[2017-06-12] MEDS ORDERED: Ondansetron 4 MG/2 ML VIAL ONE (11:09)
[2017-06-12] MEDS ORDERED: Heparin 1,000 UNITS/500 mL 500 ML ONE (11:17)
[2017-06-12] MEDS ORDERED: MORPHINE SUL Oral CONC 10 MG/0.5 ML ORAL.SYG SL PRN ×2 (11:40→12:30)
[2017-06-12] MEDS ORDERED: *HR* OxyCODONE Immed Rel 5 MG TABLET PO PRN ×2 (11:40→12:30)
[2017-06-12] MEDS ORDERED: *HR* Labetalol 20 MG/4 ML SYRINGE IVP PRN ×2 (11:40→12:30)
--- NOTE | 2017-06-12 11:53 | Physician Discharge Referral ---
- Diagnosis (1) Closed fracture of part of neck of femur Priority: Primary Status: Acute - Transfer Medications Home Medications: Lisinopril/Hydrochlorothiazide [Zestoretic 10-12.5 mg Tablet] 1 tab PO DAILY [History] predniSONE [PredniSONE] 5 mg PO DAILY #30 tablet 12/25/15 [Rx] Cholecalciferol (D-3) [Vitamin D] 1,000 unit PO DAILY 06/11/17 [History] Furosemide [Lasix] 40 mg PO DAILY 06/11/17 [History] Allergies/Adverse Reactions: 3 Allergy/AdvReac Type Severity Reaction Status Date / Time No Known Allergies Allergy Verified 06/11/17 09:07 - Respiratory Orders Smoking Cessation: Smoking cessation has been advised. For more information, call the [address] Tobacco Quit Line at 2-791-MLGK-NOW. - Mobility Orders Ambulate - Rehabiliation Orders Rehab Potential: Fair Rehab Orders: ROM Exercises, Evaluation for Physical Therapy, Evaluation for Occupational Therapy Other: DISCHARGE INSTRUCTIONS Dr. Luna Hip fracture surgery Wound Care -Keep wound / incision area clean and dry. -Keep dressing on, if it becomes saturated may change to a dry dressing -No baths or swimming until otherwise instructed. -After 10 days, you may begin to shower only if no drainage is present. No submerging the wound under standing water until cleared by your physician (no baths, hot tubs, swimming pools, etc). Sponge baths are the best way to perform personal hygiene while at the same time protecting the wound from moisture. -No scrubbing the wound. You may "pad dry" the wound, but do not rub, as this may open up he wound and pre-dispose to wound infection. -Do not apply lotions or creams to incision site, unless instructed otherwise. -Observe for redness, swelling, or drainage. Please call the clinic immediately if you have fevers, chills with warmth/redness surrounding wound site or if you notice pus drainage from the wound site Activity -No heavy lifting objects greater than 10 pounds. -No driving while on narcotic pain medication. -You may be weight-bear as tolerated on both of your lower extremities. -Use crutches or a walker for ambulation. Reducing the Risk of Blood Clots -You will need to complete a total 4 week course of enteric coated aspirin 325 mg twice daily. -Wear knee high compression hose 23 hours per day. Discharge Pain Medications -You will be given a prescription for pain medication. Wean off as tolerated. Do not wait to take the pain medication until the pain is severe, as it will be difficult to "catch up" once this occurs. The pain medication usually reaches its full effect ~1 hour after ingesting. -Your prescribed pain medication may contain Tylenol. You must be careful not to exceed 4,000 mg (4 g) of Tylenol (or generic equivalent), from all sources, within a single 24-hour period. -Some common side effects of the narcotic pain medications (Percocet, Oxycodone , Vicodin, etc) include nausea and itching. Benadryl is a great over the counter medication that helps calm your stomach, decreases your anxiety levels, and minimizes the itching. You can easily purchase this at your local pharmacy as an ttex-gjf-jejqefr medication. Please abide by the instructions as printed on t-he bottle. If your nausea persists, make sure to take small amounts of crackers or other quality measurement specialist foods. - Diet Orders Regular CERTIFICATION: I certify that the transfer of the above named patient to an Extended Care Facility is necessary for the continuing treatment of the diagnosis listed. The above information is true and accurate reflection of patient's current condition. Confidential - Redisclosure prohibited without a patient's written consent.
--- NOTE | 2017-06-12 11:56 | Orthopedic Operative Note ---
Date of procedure: 06/12/17 Pre-op diagnosis: R hip non-displaced femoral neck fracture Post-op diagnosis: same Procedure: 1. Right hip percutaneous pinning INDICATIONS: This is a 86-year-old female who had a mechanical fall and sustained a right non-displaced femoral neck fracture. After discussing the procedure at length, the patient and her family elected for operative management with a percutaneous pinning of the right hip. The risks and benefits of the procedure were fully explained. Those risks include but are not limited to, infection, neurovascular injury, continued pain, arthritis, stiffness, further injury, need for further surgery, DVT, PE, loss of limb, and loss of life. The patient understood all of these risks and wished to proceed. Informed consent was obtained. No guarantees were stated or implied. OPERATIVE REPORT: The patient was identified in the holding area. The right lower extremity was marked, the patient was taken to the operating room and general anesthetic was administered on the hospital bed. The patients head, neck and airway were protected by anesthesia through the case. The patient was then transferred to the fracture table and placed in the supine position with a well padded perineal post. All bony prominences were well padded. The right leg was attached to the traction device on the fracture bed. The left leg was then placed in a well leg acuna and positioned out of the way of fluoroscopy. We then obtained fluoroscopic images in AP and lateral planes confirming fracture reduction and alignment. The right lower extremity was then prepped and draped in the normal manner. Preoperative antibiotics were given prior to incision. A surgical time out protocol was then performed. We percutaneously placed a guidepin centrally and slightly inferior across the femoral neck up to the head, ensuring no penetration of the femoral head. We then made a 3 cm incision proximally from the guidepin, and placed 2 more guidepins, proximal and anterior and posterior to the first pin. Placement of the guidepins were confirmed on AP and lateral fluoroscopy. We then measured the appropriate screw lengths, and drilled and placed 3 6.5mm cannulated screws across the fracture site in an inverted triangle pattern. At this point we obtained final fluoroscopic images of the right hip in both AP and lateral planes. We then thoroughly irrigated the wound and closed the subcutaneous tissues with 2-0 strata fix. Skin was closed with zip line dressing. We then placed sterile dressings the patient was awoken by anesthesia and transferred to PACU in stable condition. Patient tolerated the procedure well. Postop plan: The patient will be transferred back to the floor and will be weight-bearing as tolerated postop. Complications: none Anesthesia: AMANDA Surgeon: Nnamdi Luna Was there an administration assistant present: No Estimated blood loss (cc): 10 Condition: stable Disposition: PACU
[2017-06-12] MEDS ORDERED: Naloxone 0.4 MG/ML INJ IVP PRN ×2 (12:30)
[2017-06-12] MEDS ORDERED: Acetaminophen 325 MG TABLET PO PRN (12:30)
[2017-06-12] MEDS ORDERED: *HR* OxyCODONE/APAP 5/325 TABLET PO PRN (12:30)
[2017-06-12] MEDS ORDERED: *HR* Promethazine 25 MG/ML VIAL IVP PRN (12:30)
[2017-06-12] MEDS ORDERED: Ondansetron 4 MG/2 ML VIAL IVP PRN (12:30)
--- NOTE | 2017-06-12 12:36 | Electrocardiograph Report ---
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
--- NOTE | 2017-06-12 12:56 | Anesthesia Evaluation Post Op ---
Date of Encounter: 06/12/17 Time of Encounter: 12:56 - Vital Signs Vital Signs: Last Vital Signs Temp 99.4 F 06/12/17 12:26 Pulse 94 06/12/17 12:26 Resp 18 06/12/17 12:26 BP 129/59 06/12/17 12:26 Pulse Ox 94 06/12/17 12:26 - Lungs Lungs: Clear Ascult./Percussion - Airway Airway: Non-obstructed - Cardiovascular Regular Rate - Mental Status Mental Status: Alert & Oriented, Answers Appropriately - Pain Pain Scale: 3 - Nausea Vomiting Nausea Vomiting: Not Present - Hydration Hydration: NPO, Mir catheter - Discharge PostOp Status: Transfer Patient to floor
[2017-06-12] MEDS: CeFAZolin Premix DUPLEX 2,000 MG/50 ML BAG IVPB SCH (16:39)
[2017-06-13] MEDS: CeFAZolin Premix DUPLEX 2,000 MG/50 ML BAG IVPB SCH (00:20)
[2017-06-13 04:01] LABS: Basophils % 0.2 %; Hemoglobin 10.8 g/dL (11.5-15.4); Immature Granulocytes % 1.2 % (0-4); Lymphocytes # 0.5 K/mcL (0.6-4.6); Lymphocytes % 4.6 %; Mean Corpuscular HGB Conc 33.8 g/dL (31.6-35.5); Mean Corpuscular Hemoglobin 30.9 pg (28.0-33.3); Mean Corpuscular Volume 91.4 fL (83.0-100.0); Mean Platelet Volume 11.1 fL (9.4-12.4); Monocytes # 0.4 K/mcL (0.0-1.3); Monocytes % 4.2 %; Neutrophils # 9.4 K/mcL (1.6-8.9); Platelet Count 148 K/mcL (140-400); Red Cell Distribution Width 14.1 % (11.5-14.5); Segmented Neutrophils % 89.8 %
[2017-06-13 04:29] LABS: Calcium 8.2 mg/dL (8.6-10.3)
[2017-06-13] MEDS: *HR* Heparin 5,000 UNIT/ML VIAL SQ SCH (05:36)
[2017-06-13] MEDS: Cholecalciferol (D-3) 1,000 UNIT TABLET PO SCH (08:07)
[2017-06-13] MEDS: predniSONE 5 MG TABLET PO SCH (08:07)
[2017-06-13] MEDS: Furosemide 40 MG TABLET PO SCH ×2 (08:07)
--- NOTE | 2017-06-13 08:18 | Internal Med Progress Note ---
Date of Encounter: 06/13/17 Time of Encounter: 08:15 - Assessment and plan (1) Closed fracture of part of neck of femur Current Visit: Yes Status: Acute Assessment and plan: secondary to fall at home. Right hip/pelvis with acute non-displaced right femoral neck fracture. S/p percutaneous pinning of the right hip on 06/12/[address] Luna (Ortho). evaluated by PT/OT who is recommending acute inpatient rehabilitation. PRN percocet for pain. Will need ASA 325mg BID for 4 weeks post- op for DVT prophylaxis per Ortho recommendations. MiraLAX for bowel regimen. Weightbearing as tolerated. Follow-up with Ortho outpatient. Qualifiers: Encounter type: initial encounter Laterality: right Qualified Code(s): S72.001A - Fracture of unspecified part of neck of right femur, initial encounter for closed fracture (2) STEPHAN (acute kidney injury) Current Visit: Yes Status: Acute Assessment and plan: Cr peaked at 2.15; baseline normal. Suspect prerenal as she was NPO combined with use of BRIGID/lasix and was possible hypotension. Renal function improving with IV fluids. Of note Hold home BRIGID. <omitor repeat renal function. (3) Hypertension Current Visit: No Status: Acute Assessment and plan: per hx. BP variable and now borderline/soft. Holding home BRIGID/HCTZ with STEPHAN. Patient refused morning dose of Lasix; states she only takes as needed at home. Monitor BP, resume home BP medication as BP allows. Qualifiers: Hypertension type: essential hypertension Qualified Code(s): I10 - Essential (primary) hypertension (4) Near syncope Current Visit: Yes Status: Acute Assessment and plan: Possible. Patient reported falling on morning of admission; unclear if syncopal versus mechanical. She does report being lightheaded and dizzy in the past but denies lightheadedness/dizziness when she fell. She notes room was dark which she go to the bathroom does not recall tripping over an object. Bilateral carotid Dopplers with 40-59% stenosis to LICA and nonstenotic plaque to KAYLAN. TTE with EF 60%, no valvular dysfunction and normal wall motion. Check orthostatics. (5) Polymyalgia rheumatica Current Visit: No Status: Acute Assessment and plan: per hx. Cont home prednisone. (6) DVT prophylaxis Current Visit: No Status: Acute Assessment and plan: ASA 325 mg BID for 4 weeks per Ortho - Subjective Interval history: Seen and examined at bedside. Patient is new to me, information obtained from chart review and patient report. Sitting up in bed eating breakfast, she complains of some mild right hip pain with activity/movement. Says as needed pain medicine is helping. No pain is under she is sitting still. No lower extremity numbness or tingling. - Constitutional Vitals: Temp Pulse Resp BP Pulse Ox 99.2 F 78 16 119/75 90 06/13/17 06:41 06/13/17 06:41 06/13/17 06:41 06/13/17 06:41 06/13/17 06:41 General appearance: Present: cooperative, A&O X 3, morbidly obese, no acute distress, answers questions appropriately - Head Head exam: Present: atraumatic, normocephalic - Eye Eye exam: Present: PERRL, conjuntiva pink, sclera anicteric Pupils: Present: PERRL - Neck Neck exam general surgery: Present: supple, trachea midline. Absent: lymphadenopathy - Respiratory Respiratory exam: Present: CTAB. Absent: accessory muscle use, rales, rhonchi, wheezes - Cardiovascular Cardiovascular exam: Present: RRR, +S1, +S2. Absent: diastolic murmur, gallop, rubs, systolic murmur - GI/Abdominal GI/Abdominal exam: Present: normal bowel sounds, soft, no peritoneal signs. Absent: distended, tenderness - Extremities Exam Extremities exam: Present: pedal edema, warm, radial pulses palpable and symmetrical. Absent: calf tenderness, cyanotic Additional comments: right hip incision clean, dry and intact. Trace, nonpitting edema to bilateral lower extremities - Neurological Exam Neurological exam: Present: CN II-XII intact, oriented X3, no focal deficits. Absent: pronater drift, facial droop, speech deficit - Skin Skin exam: Present: dry, intact Internal Medicine: Result - Labs CBC & Chem 7: 06/13/17 03:07 06/13/17 03:07 Labs: Short CBC 06/13/17 Range/Units 03:07 WBC 10.5 (4.3-11.1) K/mcL Hgb 10.8 L (11.5-15.4) g/dL Hct 32.0 L (35.3-44.9) % Plt Count 148 (140-400) K/mcL Neutrophils # 9.4 H (1.6-8.9) K/mcL BMP 06/12/17 06/13/17 08:14 03:07 Sodium 132 L 132 L Potassium 4.0 4.0 Chloride 100 104 Carbon Dioxide 25 23 BUN 27 H 24 H Creatinine 2.04 H 1.35 H Glucose 126 H 175 H Calcium 8.6 8.2 L Liver Function 06/12/17 Range/Units 08:14 Total Bilirubin 1.0 (0.3-1.0) mg/dL AST 17 (13-39) Units/L ALT 24 (7-52) Units/L Alkaline Phosphatase 22 L (34-104) Units/L Albumin 3.2 L (3.5-5.7) g/dL - Impressions Impressions Hip X-Ray 06/12/17 11:49 IMPRESSION: Status post ORIF of the patient's known nondisplaced femoral neck fracture. No immediate complication. D/ / 06/12/2017 12:29:32 Roro Smith MD / juanita Interpreting Provider: Roro Smith MD Fluoroscopy 06/12/17 11:56 IMPRESSION: Intraprocedural fluoroscopic spot images as above. See separate procedure report for more information. D/ / Kyler Cardoso MD / Kyler Cardoso MD Interpreting Provider: Kyler Cardoso MD - VTE Documentation of Mechanical Device: Intermittent pneumatic compression device Consult Discharge Plan - Plan Referrals: Jose Manuel Diaz Jr, MD [Primary Care Provider] -
[2017-06-13] MEDS: 0.9 % Sodium Chloride 1,000 ML IVC SCH (10:23)
--- NOTE | 2017-06-13 10:44 | Orthopedics Progress Note ---
Date of Encounter: 06/13/17 Time of Encounter: 10:42 - Assessment and Plan (1) Closed fracture of part of neck of femur Current Visit: Yes Status: Acute Qualifiers: Qualified Code(s): S72.001A - Fracture of unspecified part of neck of right femur, initial encounter for closed fracture Subjective Interval history: S: Doing well first day s/p R hip perc pinning. Pain well controlled. Has been up and walking with PT O: AFVSS GEN -- NAD, AAOx3 RLE Dress c/d/i No pain with PROM at hip DNVI s/s/t/sp/dp A/P: POD#1 s/p R hip CRPP WBAT with PT PO pain control Discharge planning for rehab Objective Vital signs: Vital Signs Temp Pulse Resp BP Pulse Ox 06/13/17 06:41 99.2 F 78 16 119/75 90 06/13/17 04:52 98.7 F 90 17 104/61 94 06/12/17 23:21 98.9 F 88 16 103/65 95 06/12/17 19:06 99.3 F 104 17 123/70 93 06/12/17 15:56 98.6 F 97 14 151/68 94 06/12/17 14:50 98.7 F 101 16 154/70 94 06/12/17 13:40 98.7 F 104 16 123/74 93 06/12/17 13:13 97.8 F 97 16 133/70 93 06/12/17 12:50 97.6 F 92 15 135/68 95 06/12/17 12:26 99.4 F 94 18 129/59 94 06/12/17 12:16 92 16 131/61 94 06/12/17 12:06 90 16 152/67 93 06/12/17 11:56 99.2 F 89 15 150/77 97 Intake and Output 06/12/17 06/13/17 06/13/17 22:59 07:59 15:59 Intake Total 1240 / 1240 Output Total Balance 1240 / 1240 Intake: IV Fluids 1000 / 1000 0.9 % Sodium Chloride 1,000 ML 1000 / 1000 @ 75 mls/hr IVC .[id number] BRANDY Rx #:[id number] Ancef Premix DUPLEX 2,000 mg In 50 ml @ 100 mls/hr IVPB Q8HR BRANDY Rx#:[id number] Oral 240 / 240 Output: Catheter Other: Meal Breakfast Percent of Meal Consumed 95% Stool Size Stool Consistency Stool Characteristics # Voids # Bowel Movements Weight Patient Weight 06/14/17 00:59 Weight 80.1 kg - Labs CBC & BMP: 06/13/17 03:07 06/13/17 03:07 Labs: Abnormal lab results RBC 3.50 M/mcL (3.82-4.97) L 06/13/17 03:07 Hgb 10.8 g/dL (11.5-15.4) L 06/13/17 03:07 Hct 32.0 % (35.3-44.9) L 06/13/17 03:07 Neutrophils # 9.4 K/mcL (1.6-8.9) H 06/13/17 03:07 Lymphocytes # 0.5 K/mcL (0.6-4.6) L 06/13/17 03:07 Sodium 132 mEq/L (136-145) L 06/13/17 03:07 BUN 24 mg/dL (8-23) H 06/13/17 03:07 Creatinine 1.35 mg/dL (0.60-1.20) H 06/13/17 03:07 Est GFR ( Amer) 45 (> 60) L 06/13/17 03:07 Est GFR (Non-Af Amer) 37 (> 60) L 06/13/17 03:07 Glucose 175 mg/dL (70-105) H 06/13/17 03:07 POC Glucose 183 (58-89) H 06/11/17 15:53 Calcium 8.2 mg/dL (8.6-10.3) L 06/13/17 03:07 Alkaline Phosphatase 22 Units/L (34-104) L 06/12/17 08:14 Serum Total Protein 5.2 g/dL (6.4-8.9) L 06/12/17 08:14 Albumin 3.2 g/dL (3.5-5.7) L 06/12/17 08:14 Globulin 2.0 g/dL (2.4-3.5) L 06/12/17 08:14 LDL Cholesterol, Calc 111 mg/dL (0-99) H 06/12/17 01:28 Urine Protein 30 mg/dL (Neg-Trace) H 06/11/17 11:20 Ur Squamous Epith Cells Moderate per lpf (None-Few) H 06/11/17 11:20 - VTE Documentation of Mechanical Device: Intermittent pneumatic compression device Consult Discharge Plan - Plan Additional Instructions: SENIOR CARE DISCHARGE INSTRUCTIONS Dr. Luna PROCEDURE PERFORMED Reduction and fixation of right hip. Incision care -Keep clear dressing in place. If dressing becomes saturated, may perform daily dressing changes to the right hip with dry gauze and either paper tape or medipore tape. -Avoid soaking wound in water (no hot tubs, bathtubs, swimming pools). -May shower after 2 weeks from surgery date. Carefully wash incision with soap and water. Gently pat it dry. Don't rub the incision, or apply creams or lotions. Sit on a shower stool when showering to keep from falling. Weight bearing status -Weightbearing as tolerated to the bilateral lower extremities. Medications -Pain medication per the discharging medical doctor -Enteric coated aspirin 325 mg by mouth twice per day for 28 days from the date of the surgery. [-Resume 50,000 units of vitamin D2 weekly and 1200 mg of calcium supplementation per day.] Other -Knee high MARISOL hose 23 hours per day -Consult physical and occupational therapy for mobilization. -Up to chair with assistance at least twice per day. -Follow up with your primary care physician to discuss testing for bone mineral density. Follow-Up -Follow-up with Dr. Luna in office in 2 weeks from the surgery date for a post-operative evaluation. -Call the office at [phone] to schedule or confirm your appointment. -Follow up with your primary care physician to discuss testing for bone mineral density. Referrals: Jose Manuel Diaz Jr, MD [Primary Care Provider] -
[2017-06-13] MEDS: Aspirin 325 MG TABLET PO SCH ×2 (12:50→20:34)
[2017-06-14] MEDS: 0.9 % Sodium Chloride 1,000 ML IVC SCH (00:23)
[2017-06-14 02:19] LABS: Hematocrit 30.2 % (35.3-44.9); Mean Corpuscular HGB Conc 33.8 g/dL (31.6-35.5); Mean Corpuscular Volume 91.8 fL (83.0-100.0); Platelet Count 138 K/mcL (140-400); Red Blood Count 3.29 M/mcL (3.82-4.97); Red Cell Distribution Width 14.4 % (11.5-14.5)
[2017-06-14 02:26] LABS: Hemoglobin 10.2 g/dL (11.5-15.4)
[2017-06-14 02:39] LABS: BUN/Creatinine Ratio 24 (6-26); Blood Urea Nitrogen 23 mg/dL (8-23); Calcium 8.5 mg/dL (8.6-10.3); Carbon Dioxide 23 mEq/L (23-29); Chloride 105 mEq/L (98-107); Glucose 131 mg/dL (70-105); Osmolality,Calculated 281 (280-300); Potassium 4.1 mEq/L (3.5-5.1); Sodium 133 mEq/L (136-145); eGFR For African Americans > 60 (> 60); eGFR For Non-African Americans 55 (> 60)
--- NOTE | 2017-06-14 07:44 | Orthopedics Progress Note ---
Date of Encounter: 06/14/17 Time of Encounter: 07:44 - Assessment and Plan (1) Closed fracture of part of neck of femur Current Visit: Yes Status: Acute Qualifiers: Encounter type: initial encounter Laterality: right Qualified Code(s): S72.001A - Fracture of unspecified part of neck of right femur, initial encounter for closed fracture Subjective Interval history: S: Resting comfortably, no overnight issues O: AFVSS GEN -- NAD, AAOx3 RLE Dress c/d/i No pain with PROM at hip DNVI s/s/t/sp/dp A/P: POD#2 s/p R hip CRPP WBAT with PT PO pain control Discharge planning for rehab Objective Vital signs: Vital Signs Temp Pulse Resp BP BP BP BP 06/14/17 06:48 98.5 F 87 16 138/76 06/14/17 05:00 98.8 F 80 16 136/68 06/14/17 01:23 98.8 F 77 16 132/69 06/13/17 19:16 98.6 F 79 17 113/68 06/13/17 16:20 104/57 107/63 125/66 06/13/17 15:51 98.5 F 88 18 104/57 06/13/17 10:48 99.1 F 85 17 118/71 Pulse Ox 06/14/17 06:48 94 06/14/17 05:00 92 06/14/17 01:23 94 06/13/17 19:16 94 06/13/17 16:20 06/13/17 15:51 93 06/13/17 10:48 92 Intake and Output 06/13/17 06/13/17 06/14/17 15:59 23:59 07:59 Intake Total 1240 / 1240 1000 / 1000 Balance 1240 / 1240 1000 / 1000 Intake: IV Fluids 1000 / 1000 1000 / 1000 0.9 % Sodium Chloride 1,000 ML 1000 / 1000 1000 / 1000 @ 75 mls/hr IVC .[id number] BRANDY Rx #:[id number] Oral 240 / 240 Other: Meal Breakfast Dinner Percent of Meal Consumed 95% 80% # Voids 1 1 # Bowel Movements 1 - Labs CBC & BMP: 06/14/17 01:24 06/14/17 01:24 Labs: Abnormal lab results RBC 3.29 M/mcL (3.82-4.97) L 06/14/17 01:24 Hgb 10.2 g/dL (11.5-15.4) L 06/14/17 01:24 Hct 30.2 % (35.3-44.9) L 06/14/17 01:24 Plt Count 138 K/mcL (140-400) L 06/14/17 01:24 Neutrophils # 9.4 K/mcL (1.6-8.9) H 06/13/17 03:07 Lymphocytes # 0.5 K/mcL (0.6-4.6) L 06/13/17 03:07 Sodium 133 mEq/L (136-145) L 06/14/17 01:24 Est GFR (Non-Af Amer) 55 (> 60) L 06/14/17 01:24 Glucose 131 mg/dL (70-105) H 06/14/17 01:24 POC Glucose 183 (58-89) H 06/11/17 15:53 Calcium 8.5 mg/dL (8.6-10.3) L 06/14/17 01:24 Alkaline Phosphatase 22 Units/L (34-104) L 06/12/17 08:14 Serum Total Protein 5.2 g/dL (6.4-8.9) L 06/12/17 08:14 Albumin 3.2 g/dL (3.5-5.7) L 06/12/17 08:14 Globulin 2.0 g/dL (2.4-3.5) L 06/12/17 08:14 LDL Cholesterol, Calc 111 mg/dL (0-99) H 06/12/17 01:28 Urine Protein 30 mg/dL (Neg-Trace) H 06/11/17 11:20 Ur Squamous Epith Cells Moderate per lpf (None-Few) H 06/11/17 11:20 - VTE Documentation of Mechanical Device: Intermittent pneumatic compression device Consult Discharge Plan - Plan Additional Instructions: GROUP HOME DISCHARGE INSTRUCTIONS Dr. Luna PROCEDURE PERFORMED Reduction and fixation of right hip. Incision care -Keep clear dressing in place. If dressing becomes saturated, may perform daily dressing changes to the right hip with dry gauze and either paper tape or medipore tape. -Avoid soaking wound in water (no hot tubs, bathtubs, swimming pools). -May shower after 2 weeks from surgery date. Carefully wash incision with soap and water. Gently pat it dry. Don't rub the incision, or apply creams or lotions. Sit on a shower stool when showering to keep from falling. Weight bearing status -Weightbearing as tolerated to the bilateral lower extremities. Medications -Pain medication per the discharging medical doctor -Enteric coated aspirin 325 mg by mouth twice per day for 28 days from the date of the surgery. [-Resume 50,000 units of vitamin D2 weekly and 1200 mg of calcium supplementation per day.] Other -Knee high MARISOL hose 23 hours per day -Consult physical and occupational therapy for mobilization. -Up to chair with assistance at least twice per day. -Follow up with your primary care physician to discuss testing for bone mineral density. Follow-Up -Follow-up with Dr. Luna in office in 2 weeks from the surgery date for a post-operative evaluation. -Call the office at [phone] to schedule or confirm your appointment. -Follow up with your primary care physician to discuss testing for bone mineral density. Referrals: Jose Manuel Diaz Jr, MD [Primary Care Provider] -
[2017-06-14] MEDS: Aspirin 325 MG TABLET PO SCH (07:56)
[2017-06-14] MEDS: Furosemide 40 MG TABLET PO SCH (07:57)
[2017-06-14] MEDS: Cholecalciferol (D-3) 1,000 UNIT TABLET PO SCH (07:58)
[2017-06-14] MEDS: predniSONE 5 MG TABLET PO SCH (07:58)
--- NOTE | 2017-06-14 08:22 | Discharge Summary ---
- NOTES TO OUTPATIENT PROVIDER Notes to Outpatient Provider: Enlarged left thyroid lobe measuring 4 cm in size. Nonemergent thyroid ultrasound suggested to better characterize. Bone mineral density recommended per Ortho. Orders not resulted at time of discharge: Pending orders 06/12/17 11:57 XR hip complete RT [XR] Routine 06/14/17 08:08 Occult Blood,Stool [BF] Stat 06/15/17 04:00 BMP [Basic Metabolic Panel] AM 0400 Complete Blood Count w/o Diff [HEME] AM 0400 06/16/17 04:00 BMP [Basic Metabolic Panel] AM 0400 Complete Blood Count w/o Diff [HEME] AM 04006/17/17 04:00 BMP [Basic Metabolic Panel] AM 0400 Complete Blood Count w/o Diff [HEME] AM 0400 06/18/17 04:00 BMP [Basic Metabolic Panel] AM 0400 Complete Blood Count w/o Diff [HEME] AM 0400 Date of Encounter: 06/14/17 Time of Encounter: 08:19 - Discharge Diagnosis (1) Closed fracture of part of neck of femur Priority: Primary Status: Acute Comments: secondary to fall at home. Right hip/pelvis with acute non-displaced right femoral neck fracture. S/p percutaneous pinning of the right hip on 06/12/[address] Luna (Ortho). evaluated by PT/OT who is recommending acute inpatient rehabilitation. PRN percocet for pain. Will need ASA 325mg BID for 4 weeks post- op for DVT prophylaxis per Ortho recommendations. MiraLAX for bowel regimen. Weightbearing as tolerated. Follow-up with Ortho outpatient Qualifiers: Encounter type: initial encounter Laterality: right Qualified Code(s): S72.001A - Fracture of unspecified part of neck of right femur, initial encounter for closed fracture (2) STEPHAN (acute kidney injury) Priority: Primary Status: Resolved Comments: Cr peaked at 2.15; baseline normal. Suspect pre-renal as she was NPO combined with use of BRIGID/lasix and soft/borderline BP with sequential hypotension. Renal function normalized with IV fluids. Resume home BRIGID. Renal function will need to be closely monitored. (3) Hypertension Priority: Secondary Status: Acute Comments: per hx. BP variable and was borderline/soft at times. Home BRIGID/HCTZ initially held with STEPHAN. BP now normotensicve. Resume home BRIGID/HCTZ combo. BP can be monitored at acute rehabilitation. Qualifiers: Hypertension type: essential hypertension Qualified Code(s): I10 - Essential (primary) hypertension (4) Near syncope Priority: Secondary Status: Acute Comments: Possible. Patient reported falling on morning of admission; unclear if syncopal versus mechanical. Reported hx of lightheaded/dizziness in the past but denied morning of fall. Patient stated room was dark when she go to the bathroom when fall occurred, did not recall tripping over an object. Head/c- spine CT non-acute. Bilateral carotid Dopplers with 40-59% stenosis to LICA and nonstenotic plaque to KAYLAN. TTE with EF 60%, no valvular dysfunction and normal wall motion. No evidence of orthostasis however suspect fall is multifactorial with possible component of orthostasis given her history. Encouraged adequate fluid intake. Can use compression stockings if patient agreeable. (5) Polymyalgia rheumatica Priority: Secondary Status: Chronic Comments: per hx. Cont home prednisone. PPI added with ASA as noted below. (6) Enlarged thyroid Priority: Primary Status: Acute Comments: C-spine CT showed an enlarged left thyroid lobe measuring 4 cm in size. Nonemergent thyroid ultrasound recommended to better characterize. This can be followed up outpatient (7) DVT prophylaxis Priority: Secondary Status: Acute Comments: ASA 325 mg BID for 4 weeks per Ortho. PPI added for GI prophylaxis Hospital course: Seen and examined at bedside. Says she feels well, only has minimal right hip pain that is worse with movement or activity. No chest pain or shortness of breath. Of note patient was initially refusing DVT prophylaxis with aspirin. Discussed with her at length the importance of taking to prevent DVT. After much encouragement she was not agreeable. Discharge discussed with: patient - Time Spent with Patient Total time spent providing and/or coordinating discharge services: Greater than 30 minutes (53 minutes spent on discharge) - Discharge Medications Prescriptions: OxyCODONE/APAP 5/325 [Percocet 5/325 MG] 1 each PO Q6HR PRN 7 Days #28 tablet PRN Reason: Pain Omeprazole [PriLOSEC] 40 mg PO DAILY@0630 #30 capsule.[address] Koenig Medications: Lisinopril/Hydrochlorothiazide [Zestoretic 10-12.5 mg Tablet] 1 tab PO DAILY [History] predniSONE [PredniSONE] 5 mg PO DAILY #30 tablet 12/25/15 [Rx] Cholecalciferol (D-3) [Vitamin D] 1,000 unit PO DAILY 06/11/17 [History] Furosemide [Lasix] 40 mg PO DAILY 06/11/17 [History] Aspirin 325 mg PO BID #0 tablet 06/14/17 [Rx] Omeprazole [PriLOSEC] 40 mg PO DAILY@0630 #30 capsule. 06/14/17 [Rx] OxyCODONE/APAP 5/325 [Percocet 5/325 MG] 1 each PO Q6HR PRN 7 Days #28 tablet [Rx] Polyethylene Glycol 3350 [MiraLAX] 17 gm PO DAILY PRN powd.pack 06/14/17 [Rx] Allergies/Adverse Reactions: 3 Allergy/AdvReac Type Severity Reaction Status Date / Time No Known Allergies Allergy Verified 06/11/17 09:07 Date of admission: 06/11/17 16:31 Primary care physician: Jose Manuel Diaz Jr, MD Consults: 06/12/17 12:30 Consult to Occupational Therapy [CONS] Routine Comment: Evaluate, develop and implement POC Reason for Consult: post hip surgery Consult to Physical Therapy [CONS] Routine Comment: Evaluate, develop and implement POC Reason for Consult: post hip surgery Consult to Pharmacy Helper [CONS] Routine Reason for SW Consult: post -op hip fracture RT Post Op Consult [CONS] Routine Discharging clinician: Ro Grossman Anticipated date of discharge: 06/14/17 - Constitutional Vitals: Temp Pulse Resp BP Pulse Ox 98.5 F 87 16 138/76 94 06/14/17 06:48 06/14/17 06:48 06/14/17 06:48 06/14/17 06:48 06/14/17 06:48 General appearance: Present: cooperative, A&O X 3, morbidly obese, no acute distress, answers questions appropriately - Head Head exam: Present: atraumatic, normocephalic - Eye Eye exam: Present: PERRL, conjuntiva pink, sclera anicteric Pupils: Present: PERRL - Neck Neck exam general surgery: Present: supple, trachea midline. Absent: lymphadenopathy - Respiratory Respiratory exam: Present: CTAB. Absent: accessory muscle use, rales, rhonchi, wheezes - Cardiovascular Cardiovascular exam: Present: RRR, +S1, +S2. Absent: diastolic murmur, gallop, rubs, systolic murmur - GI/Abdominal GI/Abdominal exam: Present: normal bowel sounds, soft, no peritoneal signs. Absent: distended, tenderness - Extremities Exam Extremities exam: Present: pedal edema, warm, radial pulses palpable and symmetrical. Absent: calf tenderness, cyanotic Additional comments: right hip incision C/D/I - Neurological Exam Neurological exam: Present: CN II-XII intact, oriented X3, no focal deficits. Absent: pronater drift, facial droop, speech deficit - Skin Skin exam: Present: dry, intact - Patient Status Disposition: Transfer Hospital Swing Bed Condition: Good Functional capacity at discharge: uses cane/walker Overall status at discharge: patient is progressing back to baseline - Discharge Instructions Follow Up With: Jose Manuel Diaz Jr, MD [Primary Care Provider] - Nnamdi Luna MD [Non-Partnered Physician] - (Follow-up with Dr. Luna in office in 2 weeks from the surgery date for a post-operative evaluation. Call the office at [phone] to schedule or confirm your appointment. ) Additional Instructions: HALFWAY DISCHARGE INSTRUCTIONS Dr. Luna PROCEDURE PERFORMED Reduction and fixation of right hip. Incision care -Keep clear dressing in place. If dressing becomes saturated, may perform daily dressing changes to the right hip with dry gauze and either paper tape or medipore tape. -Avoid soaking wound in water (no hot tubs, bathtubs, swimming pools). -May shower after 2 weeks from surgery date. Carefully wash incision with soap and water. Gently pat it dry. Don't rub the incision, or apply creams or lotions. Sit on a shower stool when showering to keep from falling. Weight bearing status -Weightbearing as tolerated to the bilateral lower extremities. Medications -Pain medication per the discharging medical doctor -Enteric coated aspirin 325 mg by mouth twice per day for 28 days from the date of the surgery. [-Resume 50,000 units of vitamin D2 weekly and 1200 mg of calcium supplementation per day.] Other -Knee high MARISOL hose 23 hours per day -Consult physical and occupational therapy for mobilization. -Up to chair with assistance at least twice per day. -Follow up with your primary care physician to discuss testing for bone mineral density. Follow-Up -Follow-up with Dr. Luna in office in 2 weeks from the surgery date for a post-operative evaluation. -Call the office at [phone] to schedule or confirm your appointment. -Follow up with your primary care physician to discuss testing for bone mineral density. - VTE Documentation of Mechanical Device: Intermittent pneumatic compression device
[2017-06-14 09:07] LABS: Thyroid Stimulating Hormone 0.764 mcIU/mL (0.340-5.600)
[2017-06-14 11:56] VITALS: BP 134/67
== END 2017-06-14 18:35 | disposition other institution (70) | DRG 481 ==
LOC: EMEROO 08:23 → 3NENU 08:23
PROVIDERS: ADMIT Family Medicine; ATTEND Internal Medicine

== ENCOUNTER 2019-07-24 13:12 | Inpatient (IN) ==
[2019-07-24] MEDS ORDERED: 0.9 % Sodium Chloride 1,000 ML IVC ONE (13:19)
[2019-07-24] MEDS ORDERED: Isovue-370 500 ML BOTTLE IVP ONE (13:19)
[2019-07-24 13:47] LABS: INR 1.1; Prothrombin Time 12.1 Seconds (9.4-12.1)
[2019-07-24 14:09] LABS: Alanine Aminotransferase 25 Units/L (7-52); Albumin 3.9 g/dL (3.5-5.7); Albumin/Globulin Ratio 1.8 (1.1-2.2); Alkaline Phosphatase 22 Units/L (34-104); Aspartate Amino Transferase 23 Units/L (13-39); BUN/Creatinine Ratio 37 (6-26); Bilirubin,Direct 0.1 mg/dL (0.0-0.2); Bilirubin,Indirect 0.8 mg/dL (0.0-1.0); Bilirubin,Total 0.9 mg/dL (0.3-1.0); Blood Urea Nitrogen 34 mg/dL (8-23); Calcium 9.5 mg/dL (8.6-10.3); Carbon Dioxide 24 mEq/L (23-29); Chloride 98 mEq/L (98-107); Globulin 2.2 g/dL (2.4-3.5); Glucose 135 mg/dL (70-105); Lipase 7 Units/L (11-82); Osmolality,Calculated 286 (280-300); Phosphorous 2.7 mg/dL (2.7-4.5); Potassium 3.6 mEq/L (3.5-5.1); Sodium 133 mEq/L (136-145); Total Protein 6.1 g/dL (6.4-8.9); Troponin I < 0.03 ng/mL (< 0.04); eGFR For African Americans > 60 (> 60); eGFR For Non-African Americans 58 (> 60)
[2019-07-24 14:10] LABS: Bilirubin,Urine Negative (Negative); Blood,Urine Trace (Negative); Clarity,Urine Cloudy (Clear); Color,Urine Yellow (Yellow); Glucose,Urine (UA) Normal (Normal); Ketones,Urine 15 mg/dL (Negative); Leukocyte Esterase,Urine Large (Negative); Nitrite,Urine Negative (Negative); Protein,Urine Trace mg/dL (Neg-Trace); Specific Gravity,Urine 1.022 (1.010-1.025); Urobilinogen,Urine Normal (Normal)
[2019-07-24 14:12] LABS: Basophils # 0.1 K/mcL (0.0-0.2); Basophils % 0.9 %; Eosinophils # 0.1 K/mcL (0.0-0.6); Eosinophils % 0.5 %; Hematocrit 39.1 % (35.3-44.9); Hemoglobin 12.8 g/dL (11.5-15.4); Immature Granulocytes % 1.7 % (0-4); Lymphocytes # 1.9 K/mcL (0.6-4.6); Lymphocytes % 14.8 %; Mean Corpuscular HGB Conc 32.7 g/dL (31.6-35.5); Mean Corpuscular Volume 94.7 fL (83.0-100.0); Mean Platelet Volume 11.4 fL (9.4-12.4); Monocytes # 1.1 K/mcL (0.0-1.3); Monocytes % 8.1 %; Neutrophils # 9.6 K/mcL (1.6-8.9); Platelet Count 156 K/mcL (140-400); Red Blood Count 4.13 M/mcL (3.82-4.97); Red Cell Distribution Width 13.1 % (11.5-14.5)
[2019-07-24 14:50] LABS: Squamous Epithelial Cell,Urine Moderate per lpf (None-Few)
[2019-07-24 14:51] LABS: Bacteria,Urine Many per hpf (None-Few); Hyaline Casts,Urine Few per lpf (None-Few); Renal Epithelial Cells,Urine Many per hpf (None-Few); WBC,Urine 50-100 per hpf (0-3)
[2019-07-24 14:52] LABS: RBC,Urine 0-3 per hpf (0-3)
[2019-07-24] MEDS ORDERED: cefTRIAXone 1,000 MG in Water for inj. (sterile) 10 ML IVP ONE (15:47)
[2019-07-24] MEDS ORDERED: Mag Hydrox/Al Hydrox/Simeth 30 ML UDC PO PRN (15:58)
[2019-07-24] MEDS ORDERED: Acetaminophen 325 MG TABLET PO PRN (15:58)
[2019-07-24] MEDS ORDERED: Ondansetron 4 MG/2 ML VIAL IVP PRN (15:58)
[2019-07-24] MEDS ORDERED: *HR* HYDROcodone/Acet 5/325 mg TABLET PO PRN (15:58)
[2019-07-24] MEDS ORDERED: Naloxone 0.4 MG/ML INJ IVP PRN (15:58)
[2019-07-24] MEDS ORDERED: MOM Conc 10 ML UD.LIQ PO PRN (15:58)
[2019-07-24] MEDS ORDERED: *HR* Promethazine 25 MG/ML VIAL IVP PRN (15:58)
[2019-07-24] MEDS: *HR* Heparin 5,000 UNIT/ML VIAL SQ SCH (18:39)
[2019-07-25 01:09] LABS: Basophils # 0.1 K/mcL (0.0-0.2); Eosinophils # 0.1 K/mcL (0.0-0.6); Eosinophils % 0.4 %; Hematocrit 36.1 % (35.3-44.9); Hemoglobin 11.9 g/dL (11.5-15.4); Immature Granulocytes % 1.2 % (0-4); Lymphocytes # 1.3 K/mcL (0.6-4.6); Lymphocytes % 11.6 %; Mean Corpuscular Hemoglobin 31.4 pg (28.0-33.3); Mean Corpuscular Volume 95.3 fL (83.0-100.0); Monocytes # 1.1 K/mcL (0.0-1.3); Monocytes % 9.6 %; Neutrophils # 8.8 K/mcL (1.6-8.9); Platelet Count 164 K/mcL (140-400); Red Blood Count 3.79 M/mcL (3.82-4.97); Red Cell Distribution Width 13.1 % (11.5-14.5); Segmented Neutrophils % 76.2 %; White Blood Count 11.5 K/mcL (4.3-11.1)
[2019-07-25 01:27] LABS: BUN/Creatinine Ratio 29 (6-26); Blood Urea Nitrogen 23 mg/dL (8-23); Calcium 8.7 mg/dL (8.6-10.3); Carbon Dioxide 24 mEq/L (23-29); Chloride 102 mEq/L (98-107); Glucose 149 mg/dL (70-105); Osmolality,Calculated 282 (280-300); Potassium 3.7 mEq/L (3.5-5.1); Sodium 133 mEq/L (136-145); eGFR For African Americans > 60 (> 60); eGFR For Non-African Americans > 60 (> 60)
[2019-07-25] MEDS: *HR* Heparin 5,000 UNIT/ML VIAL SQ SCH ×2 (05:00→16:41)
[2019-07-25] MEDS ORDERED: cefTRIAXone 1,000 MG in 0.9 % Sodium Chloride Mini Bag 100 ML IVPB SCH (09:00)
[2019-07-25] MEDS: predniSONE 5 MG TABLET PO SCH (09:39)
[2019-07-25] MEDS: PRESERVISION AREDS PO SCH (09:57)
[2019-07-25] MEDS: 0.9 % Sodium Chloride 1,000 ML IVC SCH (13:22)
[2019-07-25] MEDS ORDERED: cefTRIAXone 1,000 MG in Water for inj. (sterile) 10 ML IVP SCH (16:00)
[2019-07-25] MEDS: polyethylene glycoL 3350 17 GM POWD.PACK PO SCH (17:42)
[2019-07-26 02:34] LABS: Hematocrit 36.6 % (35.3-44.9); Hemoglobin 12.3 g/dL (11.5-15.4); Mean Corpuscular HGB Conc 33.6 g/dL (31.6-35.5); Mean Corpuscular Volume 95.3 fL (83.0-100.0); Platelet Count 161 K/mcL (140-400); Red Blood Count 3.84 M/mcL (3.82-4.97); Red Cell Distribution Width 13.1 % (11.5-14.5); White Blood Count 11.2 K/mcL (4.3-11.1)
[2019-07-26 02:56] LABS: BUN/Creatinine Ratio 23 (6-26); Blood Urea Nitrogen 18 mg/dL (8-23); Calcium 8.7 mg/dL (8.6-10.3); Carbon Dioxide 23 mEq/L (23-29); Chloride 100 mEq/L (98-107); Glucose 143 mg/dL (70-105); Osmolality,Calculated 282 (280-300); Potassium 3.6 mEq/L (3.5-5.1); Sodium 134 mEq/L (136-145); eGFR For African Americans > 60 (> 60); eGFR For Non-African Americans > 60 (> 60)
[2019-07-26 03:11] LABS: Thyroid Stimulating Hormone 1.169 mcIU/mL (0.340-5.600)
[2019-07-26] MEDS: 0.9 % Sodium Chloride 1,000 ML IVC SCH (03:24)
[2019-07-26] MEDS: *HR* Heparin 5,000 UNIT/ML VIAL SQ SCH (05:00)
[2019-07-26] MEDS: predniSONE 5 MG TABLET PO SCH (09:09)
[2019-07-26] MEDS: polyethylene glycoL 3350 17 GM POWD.PACK PO SCH (09:09)
[2019-07-26] MEDS: PRESERVISION AREDS PO SCH (09:10)
[2019-07-26 11:11] VITALS: BP 147/77
[2019-07-27] MEDS ORDERED: Multivit/Ca/Min/Fe/FA 1 TAB TABLET PO SCH (09:00)
== END 2019-07-26 15:16 | disposition home or self-care (01) | DRG 312 ==
LOC: EMEROOARM 13:12 → 3BNU 13:12
PROVIDERS: ADMIT Internal Medicine; ATTEND Internal Medicine

== ENCOUNTER 2019-12-15 09:37 | Inpatient (IN) ==
[2019-12-15] MEDS ORDERED: 0.9 % Sodium Chloride 500 ML IVC ONE ×2 (10:06→11:18)
[2019-12-15] MEDS ORDERED: Ondansetron 4 MG/2 ML VIAL IVP ONE (10:09)
[2019-12-15] MEDS ORDERED: Tdap (Boostrix) Vaccine 0.5 ML SYRINGE IM ONE (10:10)
[2019-12-15 10:46] LABS: Basophils # 0.1 K/mcL (0.0-0.2); Basophils % 0.8 %; Eosinophils % 0.1 %; Hematocrit 40.8 % (35.3-44.9); Hemoglobin 14.1 g/dL (11.5-15.4); Immature Granulocytes % 1.9 % (0-4); Lymphocytes # 1.8 K/mcL (0.6-4.6); Lymphocytes % 12.4 %; Mean Corpuscular HGB Conc 34.6 g/dL (31.6-35.5); Mean Corpuscular Hemoglobin 32.4 pg (28.0-33.3); Mean Corpuscular Volume 93.8 fL (83.0-100.0); Mean Platelet Volume 11.4 fL (9.4-12.4); Monocytes # 0.8 K/mcL (0.0-1.3); Monocytes % 5.7 %; Neutrophils # 11.3 K/mcL (1.6-8.9); Platelet Count 146 K/mcL (140-400); Red Blood Count 4.35 M/mcL (3.82-4.97); Red Cell Distribution Width 13.7 % (11.5-14.5); Segmented Neutrophils % 79.1 %; White Blood Count 14.3 K/mcL (4.3-11.1)
[2019-12-15 11:04] LABS: Albumin 3.8 g/dL (3.5-5.7); Albumin/Globulin Ratio 1.7 (1.1-2.2); Bilirubin,Direct 0.1 mg/dL (0.0-0.2); Bilirubin,Indirect 0.9 mg/dL (0.0-1.0); Calcium 9.4 mg/dL (8.6-10.3); Globulin 2.3 g/dL (2.4-3.5); Total Protein 6.1 g/dL (6.4-8.9); Troponin I 0.05 ng/mL (< 0.04)
[2019-12-15] MEDS ORDERED: Isovue-370 500 ML BOTTLE IVP ONE (11:17)
[2019-12-15 11:27] LABS: Bilirubin,Urine Negative (Negative); Blood,Urine Trace-intact (Negative); Clarity,Urine Clear (Clear); Color,Urine Yellow (Yellow); Glucose,Urine (UA) 500 mg/dL (Normal); Ketones,Urine Negative (Negative); Leukocyte Esterase,Urine Negative (Negative); Nitrite,Urine Negative (Negative); Protein,Urine Negative (Neg-Trace); Urobilinogen,Urine Normal (Normal)
[2019-12-15 11:32] LABS: RBC,Urine 0-3 per hpf (0-3); Squamous Epithelial Cell,Urine Few per hpf (None-Few); WBC,Urine 0-3 per hpf (0-3)
[2019-12-15] MEDS ORDERED: Ondansetron 4 MG/2 ML VIAL IVP PRN (12:49)
[2019-12-15] MEDS ORDERED: Naloxone 0.4 MG/ML INJ IVP PRN (12:49)
[2019-12-15] MEDS: cefTRIAXone 1,000 MG in Water for inj. (sterile) 10 ML IVP SCH (17:41)
[2019-12-15] MEDS: MetroNIDAZOLE 500 MG/100 ML 500 MG/100 ML BAG IVPB SCH ×2 (17:47→18:04)
[2019-12-15 19:09] LABS: Troponin I 0.24 ng/mL (< 0.04)
[2019-12-15] MEDS ORDERED: Albumin 25% 25gram/100mL 25 GM/100 ML IV.SOLN IVPB ONE (19:47)
[2019-12-15] MEDS: predniSONE 5 MG TABLET PO SCH (20:13)
[2019-12-15 21:03] LABS: Potassium 3.2 mEq/L (3.5-5.1)
[2019-12-15] MEDS: Vancomycin Oral Soln 125 MG/2.5 ML UDC PO SCH (22:03)
[2019-12-15] MEDS ORDERED: Potassium Chloride 20 MEQ, Lidocaine 1% 2 ML in 0.9 % Sodium Chloride 250 ML IVPB ONE (22:35)
[2019-12-16] MEDS: MetroNIDAZOLE 500 MG/100 ML 500 MG/100 ML BAG IVPB SCH ×3 (00:28→15:28)
[2019-12-16 00:59] LABS: Basophils # 0.1 K/mcL (0.0-0.2); Basophils % 0.5 %; Eosinophils % 0.1 %; Hematocrit 34.2 % (35.3-44.9); Immature Granulocytes % 1.4 % (0-4); Lymphocytes # 0.7 K/mcL (0.6-4.6); Lymphocytes % 4.2 %; Mean Corpuscular HGB Conc 34.2 g/dL (31.6-35.5); Mean Corpuscular Hemoglobin 32.4 pg (28.0-33.3); Mean Corpuscular Volume 94.7 fL (83.0-100.0); Mean Platelet Volume 11.9 fL (9.4-12.4); Monocytes # 0.7 K/mcL (0.0-1.3); Monocytes % 4.6 %; Neutrophils # 13.9 K/mcL (1.6-8.9); Platelet Count 139 K/mcL (140-400); Red Blood Count 3.61 M/mcL (3.82-4.97); Segmented Neutrophils % 89.2 %; White Blood Count 15.5 K/mcL (4.3-11.1)
[2019-12-16 01:02] LABS: Hemoglobin 11.7 g/dL (11.5-15.4)
[2019-12-16 01:20] LABS: Calcium 8.7 mg/dL (8.6-10.3); Potassium 3.5 mEq/L (3.5-5.1)
[2019-12-16] MEDS ORDERED: *HR* Heparin 5,000 UNIT/ML VIAL IVP PRN ×2 (03:29)
[2019-12-16] MEDS ORDERED: *HR* Heparin 5,000 UNIT/ML VIAL IVP ONE (03:29)
[2019-12-16] MEDS: Heparin 25,000UNIT/250ML 1/2NS 25,000 UNIT/250 ML IV.SOLN IVC SCH (05:35)
[2019-12-16 05:59] LABS: Hematocrit 38.4 % (35.3-44.9); Hemoglobin 12.5 g/dL (11.5-15.4); Mean Corpuscular HGB Conc 32.6 g/dL (31.6-35.5); Mean Corpuscular Hemoglobin 31.5 pg (28.0-33.3); Mean Corpuscular Volume 96.7 fL (83.0-100.0); Mean Platelet Volume 11.7 fL (9.4-12.4); Platelet Count 146 K/mcL (140-400); Red Blood Count 3.97 M/mcL (3.82-4.97); Red Cell Distribution Width 14.1 % (11.5-14.5); White Blood Count 15.7 K/mcL (4.3-11.1)
[2019-12-16 06:16] LABS: INR 1.2; Prothrombin Time 13.4 Seconds (9.4-12.1)
[2019-12-16 06:18] LABS: Heparin anti-factor XA UFH 1.6 IU/mL (0.30-0.70)
[2019-12-16] MEDS: predniSONE 5 MG TABLET PO SCH ×2 (07:47→20:54)
[2019-12-16] MEDS: cefTRIAXone 1,000 MG in Water for inj. (sterile) 10 ML IVP SCH (07:47)
[2019-12-16] MEDS: Vancomycin Oral Soln 125 MG/2.5 ML UDC PO SCH (08:11)
[2019-12-16] MEDS ORDERED: Perflutren Lipid Microsphere 1.3 ML in 0.9 % Sodium Chloride 8.7 ML IVP PRN (10:32)
[2019-12-16] MEDS ORDERED: 0.9 % Sodium Chloride 1,000 ML IVC SCH (10:45)
[2019-12-16 10:53] LABS: Hematocrit 35.9 % (35.3-44.9); Hemoglobin 11.6 g/dL (11.5-15.4)
[2019-12-16] MEDS: Aspirin 81 MG TAB.CHEW PO SCH (15:28)
[2019-12-16 17:27] LABS: Hemoglobin 12.1 g/dL (11.5-15.4)
[2019-12-17] MEDS: MetroNIDAZOLE 500 MG/100 ML 500 MG/100 ML BAG IVPB SCH ×4 (00:21→23:59)
[2019-12-17] MEDS: Heparin 25,000UNIT/250ML 1/2NS 25,000 UNIT/250 ML IV.SOLN IVC SCH ×2 (04:00→14:34)
[2019-12-17] MEDS: Aspirin 81 MG TAB.CHEW PO SCH (08:07)
[2019-12-17] MEDS: predniSONE 5 MG TABLET PO SCH ×2 (08:07→21:25)
[2019-12-17] MEDS: cefTRIAXone 1,000 MG in Water for inj. (sterile) 10 ML IVP SCH (08:08)
[2019-12-17 10:03] LABS: Basophils # 0.1 K/mcL (0.0-0.2); Basophils % 0.6 %; Eosinophils % 0.1 %; Hematocrit 36.1 % (35.3-44.9); Immature Granulocytes % 1.8 % (0-4); Lymphocytes # 0.6 K/mcL (0.6-4.6); Lymphocytes % 4.8 %; Mean Corpuscular HGB Conc 33.2 g/dL (31.6-35.5); Mean Corpuscular Hemoglobin 31.8 pg (28.0-33.3); Mean Corpuscular Volume 95.8 fL (83.0-100.0); Mean Platelet Volume 11.8 fL (9.4-12.4); Monocytes # 0.4 K/mcL (0.0-1.3); Monocytes % 2.9 %; Neutrophils # 11.7 K/mcL (1.6-8.9); Platelet Count 146 K/mcL (140-400); Red Blood Count 3.77 M/mcL (3.82-4.97); Red Cell Distribution Width 14.2 % (11.5-14.5); Segmented Neutrophils % 89.8 %
[2019-12-17 10:23] LABS: BUN/Creatinine Ratio 28 (6-26); Blood Urea Nitrogen 27 mg/dL (8-23); Carbon Dioxide 26 mEq/L (23-29); Chloride 102 mEq/L (98-107); Glucose 235 mg/dL (70-105); Osmolality,Calculated 295 (280-300); Potassium 3.9 mEq/L (3.5-5.1); Sodium 136 mEq/L (136-145); eGFR For African Americans > 60 (> 60); eGFR For Non-African Americans 55 (> 60)
[2019-12-18 06:55] LABS: Eosinophils % 0.1 %
[2019-12-18 06:57] LABS: Basophils # 0.1 K/mcL (0.0-0.2); Basophils % 0.8 %; Hematocrit 34.6 % (35.3-44.9); Hemoglobin 11.2 g/dL (11.5-15.4); Immature Platelets 7.7 % (1.1-6.1); Lymphocytes # 0.6 K/mcL (0.6-4.6); Lymphocytes % 5.8 %; Mean Corpuscular HGB Conc 32.4 g/dL (31.6-35.5); Mean Corpuscular Hemoglobin 31.3 pg (28.0-33.3); Mean Corpuscular Volume 96.6 fL (83.0-100.0); Mean Platelet Volume 11.6 fL (9.4-12.4); Monocytes # 0.4 K/mcL (0.0-1.3); Monocytes % 4.1 %; Neutrophils # 9.4 K/mcL (1.6-8.9); Platelet Count 143 K/mcL (140-400); Red Blood Count 3.58 M/mcL (3.82-4.97); Segmented Neutrophils % 87.2 %; White Blood Count 10.8 K/mcL (4.3-11.1)
[2019-12-18 07:44] LABS: BUN/Creatinine Ratio 29 (6-26); Blood Urea Nitrogen 27 mg/dL (8-23); Calcium 8.8 mg/dL (8.6-10.3); Carbon Dioxide 25 mEq/L (23-29); Chloride 106 mEq/L (98-107); Glucose 232 mg/dL (70-105); Osmolality,Calculated 297 (280-300); Potassium 4.5 mEq/L (3.5-5.1); Sodium 137 mEq/L (136-145); eGFR For African Americans > 60 (> 60); eGFR For Non-African Americans 57 (> 60)
[2019-12-18] MEDS: MetroNIDAZOLE 500 MG/100 ML 500 MG/100 ML BAG IVPB SCH (08:05)
[2019-12-18] MEDS: cefTRIAXone 1,000 MG in Water for inj. (sterile) 10 ML IVP SCH (08:07)
[2019-12-18] MEDS: predniSONE 5 MG TABLET PO SCH (08:08)
[2019-12-18] MEDS: Aspirin 81 MG TAB.CHEW PO SCH (08:09)
[2019-12-18 08:54] VITALS: BP 161/78
== END 2019-12-18 11:32 | disposition home or self-care (01) | DRG 281 ==
LOC: 2ANU 09:37 → EMEROOARM 09:37 → SUATTDRO 14:32 → 2ANU 15:20 → 2NNU 23:23 → 2ANU 12-17 21:38
PROVIDERS: ADMIT Student in an Organized Health Care Education/Training Program; ATTEND Family Medicine

== ENCOUNTER 2020-05-07 15:28 | Inpatient (IN) ==
[2020-05-07] MEDS ORDERED: Isovue-370 500 ML BOTTLE IVP ONE (17:44)
[2020-05-07] MEDS ORDERED: 0.9 % Sodium Chloride 1,000 ML IVC ONE (17:44)
[2020-05-07 17:46] LABS: Eosinophils % 0.1 %
[2020-05-07 17:48] LABS: Basophils # 0.2 K/mcL (0.0-0.2); Basophils % 1.3 %; Hemoglobin 14.2 g/dL (11.5-15.4); Immature Granulocytes % 4.1 % (0-4); Immature Platelets 16.9 % (1.1-6.1); Lymphocytes # 0.8 K/mcL (0.6-4.6); Lymphocytes % 6.3 %; Mean Corpuscular Hemoglobin 30.7 pg (28.0-33.3); Mean Corpuscular Volume 93.1 fL (83.0-100.0); Monocytes # 0.5 K/mcL (0.0-1.3); Monocytes % 3.8 %; Neutrophils # 10.2 K/mcL (1.6-8.9); Platelet Count 137 K/mcL (140-400); Red Blood Count 4.62 M/mcL (3.82-4.97); Red Cell Distribution Width 13.5 % (11.5-14.5); Segmented Neutrophils % 84.4 %; White Blood Count 12.1 K/mcL (4.3-11.1)
[2020-05-07 18:08] LABS: Calcium 9.5 mg/dL (8.6-10.3); Magnesium 2.1 mg/dL (1.6-2.6); Phosphorous 2.9 mg/dL (2.7-4.5); Potassium 4.7 mEq/L (3.5-5.1); Troponin I 0.05 ng/mL (< 0.04)
[2020-05-07] MEDS ORDERED: Insulin Regular, Human 100 UNIT/ML SUBQ ONE (18:38)
[2020-05-07 21:29] LABS: Bilirubin,Urine Negative (Negative); Blood,Urine Negative (Negative); Clarity,Urine Clear (Clear); Color,Urine Colorless (Yellow); Glucose,Urine (UA) >=1000 mg/dL (Normal); Ketones,Urine Trace mg/dL (Negative); Leukocyte Esterase,Urine Moderate (Negative); Mucus,Urine Few per lpf (None-Few); Nitrite,Urine Negative (Negative); Protein,Urine Negative (Neg-Trace); RBC,Urine 0-3 per hpf (0-3); Specific Gravity,Urine > 1.030 (1.010-1.025); Squamous Epithelial Cell,Urine Few per hpf (None-Few); Urobilinogen,Urine Normal (Normal)
[2020-05-07] MEDS ORDERED: Naloxone 0.4 MG/ML INJ IVP PRN (22:58)
[2020-05-07] MEDS ORDERED: Ondansetron 4 MG/2 ML VIAL IVP PRN (22:58)
[2020-05-07] MEDS ORDERED: Acetaminophen 325 MG TABLET PO PRN (22:58)
[2020-05-07] MEDS ORDERED: 0.9 % Sodium Chloride 1,000 ML IVC SCH (23:00)
[2020-05-07] MEDS ORDERED: Dextrose Gel 15 GM/37.5 ML TUBE PO PRN ×2 (23:02)
[2020-05-07] MEDS ORDERED: *HR* Dextrose 50 % in Water (Vial) 50 ML VIAL IVP PRN (23:02)
[2020-05-07] MEDS ORDERED: D5% in Water 1,000 ML IVC PRN (23:02)
[2020-05-08 03:51] LABS: Alanine Aminotransferase 37 Units/L (7-52); Albumin 3.2 g/dL (3.5-5.7); Albumin/Globulin Ratio 1.7 (1.1-2.2); Alkaline Phosphatase 26 Units/L (34-104); Aspartate Amino Transferase 21 Units/L (13-39); BUN/Creatinine Ratio 33 (6-26); Bilirubin,Total 0.7 mg/dL (0.3-1.0); Blood Urea Nitrogen 27 mg/dL (8-23); Calcium 8.7 mg/dL (8.6-10.3); Carbon Dioxide 26 mEq/L (23-29); Chloride 104 mEq/L (98-107); Globulin 1.9 g/dL (2.4-3.5); Glucose 139 mg/dL (70-105); Osmolality,Calculated 289 (280-300); Potassium 3.7 mEq/L (3.5-5.1); Sodium 136 mEq/L (136-145); Total Protein 5.1 g/dL (6.4-8.9); eGFR For African Americans > 60 (> 60); eGFR For Non-African Americans > 60 (> 60)
[2020-05-08 03:57] LABS: Troponin I 0.05 ng/mL (< 0.04)
[2020-05-08 04:05] LABS: Thyroid Stimulating Hormone 0.941 mcIU/mL (0.340-5.600)
[2020-05-08 04:41] LABS: Lymphocytes % 14.6 %; Red Blood Count 4.13 M/mcL (3.82-4.97); Red Cell Distribution Width 13.4 % (11.5-14.5)
[2020-05-08 04:43] LABS: Basophils # 0.1 K/mcL (0.0-0.2); Basophils % 1.1 %; Eosinophils % 0.3 %; Hematocrit 38.1 % (35.3-44.9); Hemoglobin 12.6 g/dL (11.5-15.4); Immature Platelets 15.9 % (1.1-6.1); Lymphocytes # 1.5 K/mcL (0.6-4.6); Mean Corpuscular HGB Conc 33.1 g/dL (31.6-35.5); Mean Corpuscular Hemoglobin 30.5 pg (28.0-33.3); Mean Corpuscular Volume 92.3 fL (83.0-100.0); Mean Platelet Volume 13.4 fL (9.4-12.4); Monocytes % 6.2 %; Neutrophils # 7.7 K/mcL (1.6-8.9); Platelet Count 118 K/mcL (140-400); Segmented Neutrophils % 73.8 %; White Blood Count 10.4 K/mcL (4.3-11.1)
[2020-05-08 05:07] LABS: Monocytes # 0.6 K/mcL (0.0-1.3)
[2020-05-08 05:08] LABS: Platelet Estimate Slight Decrease (Normal)
[2020-05-08] MEDS: *HR* Heparin 5,000 UNIT/ML VIAL SQ SCH ×2 (05:09→16:35)
[2020-05-08] MEDS: predniSONE 5 MG TABLET PO SCH ×2 (08:04→21:33)
[2020-05-08] MEDS: Metoprolol XL (24 HR) Succ 50 MG TAB.ER.24H PO SCH (08:04)
[2020-05-08] MEDS: Aspirin 81 MG TAB.CHEW PO SCH (08:04)
[2020-05-08 10:30] LABS: Estimated Average Glucose 346 mg/dl; Hemoglobin A1C 13.7 %
[2020-05-08] MEDS: Insulin LISPRO 300 UNITS/3 ML VIAL SUBQ SCH ×2 (11:48→16:34)
[2020-05-08] MEDS: polyethylene glycoL 3350 17 GM POWD.PACK PO SCH (15:24)
[2020-05-08] MEDS: *HR* Metformin 500 MG TABLET PO SCH (16:35)
[2020-05-08] MEDS ORDERED: Insulin LISPRO 300 UNITS/3 ML VIAL SUBQ SCH (21:00)
[2020-05-09] MEDS: *HR* Heparin 5,000 UNIT/ML VIAL SQ SCH (05:33)
[2020-05-09] MEDS: polyethylene glycoL 3350 17 GM POWD.PACK PO SCH (08:14)
[2020-05-09] MEDS: Metoprolol XL (24 HR) Succ 50 MG TAB.ER.24H PO SCH (08:14)
[2020-05-09] MEDS: *HR* Metformin 500 MG TABLET PO SCH (08:14)
[2020-05-09] MEDS: predniSONE 5 MG TABLET PO SCH (08:14)
[2020-05-09] MEDS: Aspirin 81 MG TAB.CHEW PO SCH (08:14)
[2020-05-09] MEDS: Insulin LISPRO 300 UNITS/3 ML VIAL SUBQ SCH ×2 (08:15→11:15)
[2020-05-09] MEDS ORDERED: amLODIPine 5 MG TABLET PO SCH (09:00)
[2020-05-09] MEDS ORDERED: Furosemide 40 MG TABLET PO SCH (09:00)
[2020-05-09 11:13] VITALS: BP 112/73
== END 2020-05-09 14:48 | disposition home health service (06) | DRG 638 ==
LOC: EMEROOARM 15:28 → 3BNU 15:28 → SUATTDRO 05-08 14:09
PROVIDERS: ADMIT Family Medicine; ATTEND Registered Nurse

== ENCOUNTER 2020-05-26 10:15 | Inpatient (IN) ==
[2020-05-26] MEDS ORDERED: Ipratropium/Albuterol Neb 3 ML IH ONE (10:34)
[2020-05-26] MEDS ORDERED: Azithromycin 500 MG in 0.9 % Sodium Chloride 250 ML IVPB ONE (10:34)
[2020-05-26] MEDS ORDERED: Ondansetron 4 MG/2 ML VIAL IVP ONE (10:34)
[2020-05-26] MEDS ORDERED: cefTRIAXone 1,000 MG in Water for inj. (sterile) 10 ML IVP ONE (10:34)
[2020-05-26] MEDS ORDERED: 0.9 % Sodium Chloride 1,000 ML IVC ONE (10:40)
[2020-05-26 10:55] LABS: Basophils # 0.3 K/mcL (0.0-0.2); Basophils % 1.5 %; Eosinophils % 0.2 %; Hematocrit 40.4 % (35.3-44.9); Hemoglobin 13.1 g/dL (11.5-15.4); Immature Granulocytes % 4.9 % (0-4); Lymphocytes % 10.4 %; Mean Corpuscular HGB Conc 32.4 g/dL (31.6-35.5); Mean Corpuscular Hemoglobin 30.3 pg (28.0-33.3); Mean Corpuscular Volume 93.3 fL (83.0-100.0); Mean Platelet Volume 11.6 fL (9.4-12.4); Nucleated Red Blood Cells 0.1 /100 WBC (0); Platelet Count 352 K/mcL (140-400); Red Blood Count 4.33 M/mcL (3.82-4.97); Red Cell Distribution Width 14.8 % (11.5-14.5); White Blood Count 19.2 K/mcL (4.3-11.1)
[2020-05-26 11:04] LABS: INR 1.4; Prothrombin Time 15.8 Seconds (9.4-12.1)
[2020-05-26 11:06] LABS: Activated Partial Thrombo Time 28.9 Seconds (26.0-36.0)
[2020-05-26 11:09] LABS: Fibrinogen > 1000 mg/dL (169-393)
[2020-05-26 11:53] LABS: Albumin 2.7 g/dL (3.5-5.7); Albumin/Globulin Ratio 0.8 (1.1-2.2); Bilirubin,Direct 0.1 mg/dL (0.0-0.2); Bilirubin,Indirect 0.6 mg/dL (0.0-1.0); Bilirubin,Total 0.7 mg/dL (0.3-1.0); Calcium 8.4 mg/dL (8.6-10.3); Globulin 3.2 g/dL (2.4-3.5); Magnesium 2.1 mg/dL (1.6-2.6); Phosphorous 4.3 mg/dL (2.7-4.5); Potassium 4.2 mEq/L (3.5-5.1); Total Protein 5.9 g/dL (6.4-8.9); Troponin I 0.03 ng/mL (< 0.04)
[2020-05-26 12:50] LABS: Adenovirus Not Detected (Not Detect); Bordetella Pertussis Not Detected (Not Detect); Chlamydophila pneumoniae Not Detected (Not Detect); Coronavirus 229E Not Detected (Not Detect); Coronavirus HKU1 Not Detected (Not Detect); Coronavirus NL63 Not Detected (Not Detect); Coronavirus OC43 Not Detected (Not Detect); Human Metapneumovirus Not Detected (Not Detect); Human Rhinovirus/Enterovirus Not Detected (Not Detect); Influenza A Subtype 2009 H1 Not Detected (Not Detect); Influenza B Not Detected (Not Detect); Mycoplasma pneumoniae Not Detected (Not Detect); Parainfluenza Virus 1 Not Detected (Not Detect); Parainfluenza Virus 2 Not Detected (Not Detect); Parainfluenza Virus 3 Not Detected (Not Detect); Parainfluenza Virus 4 Not Detected (Not Detect); Respiratory Syncytial Virus Not Detected (Not Detect); SARS-CoV-2 Not Detected (Not Detect)
[2020-05-26 13:24] LABS: Bilirubin,Urine Negative (Negative); Blood,Urine Small (Negative); Clarity,Urine Turbid (Clear); Color,Urine Yellow (Yellow); Glucose,Urine (UA) Normal (Normal); Ketones,Urine Negative (Negative); Leukocyte Esterase,Urine Large (Negative); Nitrite,Urine Negative (Negative); PH,Urine 5.5 pH Units (5.0-8.0); Protein,Urine 30 mg/dL (Neg-Trace); Specific Gravity,Urine 1.011 (1.010-1.025); Urobilinogen,Urine Normal (Normal)
[2020-05-26 13:26] LABS: Bacteria,Urine Many per hpf (None-Few); WBC,Urine TNTC per hpf (0-3)
[2020-05-26 13:35] LABS: Squamous Epithelial Cell,Urine Present per hpf (None-Few)
[2020-05-26] MEDS ORDERED: Naloxone 0.4 MG/ML INJ IVP PRN (13:45)
[2020-05-26] MEDS ORDERED: Acetaminophen 325 MG TABLET PO PRN (13:45)
[2020-05-26] MEDS ORDERED: *HR* Dextrose 50 % in Water (Vial) 50 ML VIAL IVP PRN (13:49)
[2020-05-26] MEDS ORDERED: Albuterol 2.5 MG/3 ML NEBULIZER IH PRN (13:49)
[2020-05-26] MEDS ORDERED: D5% in Water 1,000 ML IVC PRN (13:49)
[2020-05-26] MEDS ORDERED: Dextrose Gel 15 GM/37.5 ML TUBE PO PRN ×2 (13:49)
[2020-05-26] MEDS: 0.9 % Sodium Chloride 1,000 ML IVC SCH (15:33)
[2020-05-26] MEDS: Piperacillin/Tazobactam 3.375 GM in 0.9 % Sodium Chloride Mini Bag 100 ML IVPB SCH (15:33)
[2020-05-26] MEDS ORDERED: Insulin LISPRO 300 UNITS/3 ML VIAL SUBQ SCH (16:30)
[2020-05-26] MEDS: Insulin LISPRO 300 UNITS/3 ML VIAL SUBQ SCH ×2 (16:50→23:36)
[2020-05-26] MEDS ORDERED: *HR* Heparin 5,000 UNIT/ML VIAL SQ SCH (18:00)
[2020-05-27] MEDS: Piperacillin/Tazobactam 3.375 GM in 0.9 % Sodium Chloride Mini Bag 100 ML IVPB SCH ×2 (01:58→13:31)
[2020-05-27] MEDS: 0.9 % Sodium Chloride 1,000 ML IVC SCH ×3 (01:58→23:52)
[2020-05-27 02:24] LABS: Basophils # 0.2 K/mcL (0.0-0.2); Eosinophils % 0.2 %; Hematocrit 35.5 % (35.3-44.9); Hemoglobin 11.7 g/dL (11.5-15.4); Immature Granulocytes % 3.2 % (0-4); Lymphocytes # 1.4 K/mcL (0.6-4.6); Lymphocytes % 6.9 %; Mean Corpuscular Hemoglobin 30.9 pg (28.0-33.3); Mean Corpuscular Volume 93.7 fL (83.0-100.0); Mean Platelet Volume 11.4 fL (9.4-12.4); Neutrophils # 17.3 K/mcL (1.6-8.9); Nucleated Red Blood Cells 0.1 /100 WBC (0); Platelet Count 346 K/mcL (140-400); Red Blood Count 3.79 M/mcL (3.82-4.97); Red Cell Distribution Width 14.9 % (11.5-14.5); Segmented Neutrophils % 83.7 %; White Blood Count 20.7 K/mcL (4.3-11.1)
[2020-05-27 02:44] LABS: Calcium 7.4 mg/dL (8.6-10.3); Magnesium 2.1 mg/dL (1.6-2.6); Potassium 3.2 mEq/L (3.5-5.1)
[2020-05-27] MEDS: Insulin LISPRO 300 UNITS/3 ML VIAL SUBQ SCH ×3 (06:04→21:50)
[2020-05-27] MEDS ORDERED: Insulin LISPRO 300 UNITS/3 ML VIAL SUBQ SCH (11:30)
[2020-05-27] MEDS: Ondansetron 4 MG/2 ML VIAL IVP PRN (13:31)
[2020-05-27] MEDS: *HR* Heparin 5,000 UNIT/ML VIAL SQ SCH (18:25)
[2020-05-28 01:05] LABS: Hematocrit 35.5 % (35.3-44.9); Hemoglobin 11.5 g/dL (11.5-15.4); Mean Corpuscular HGB Conc 32.4 g/dL (31.6-35.5); Mean Corpuscular Volume 95.7 fL (83.0-100.0); Mean Platelet Volume 11.6 fL (9.4-12.4); Neutrophils # 13.6 K/mcL (1.6-8.9); Platelet Count 304 K/mcL (140-400); Red Blood Count 3.71 M/mcL (3.82-4.97); Red Cell Distribution Width 15.3 % (11.5-14.5); White Blood Count 17.4 K/mcL (4.3-11.1)
[2020-05-28 01:25] LABS: Calcium 7.2 mg/dL (8.6-10.3); Magnesium 1.7 mg/dL (1.6-2.6); Phosphorous 1.5 mg/dL (2.7-4.5); Potassium 2.8 mEq/L (3.5-5.1)
[2020-05-28] MEDS: Piperacillin/Tazobactam 3.375 GM in 0.9 % Sodium Chloride Mini Bag 100 ML IVPB SCH ×3 (01:48→19:37)
[2020-05-28 01:51] LABS: Anisocytosis 1+ (Not Present); Poikilocytosis 1+ (Not Present)
[2020-05-28 01:52] LABS: Eosinophils # 0.4 K/mcL (0.0-0.6)
[2020-05-28 01:53] LABS: Platelet Estimate Normal (Normal); Toxic Granulation Present (Not Present)
[2020-05-28] MEDS: Insulin LISPRO 300 UNITS/3 ML VIAL SUBQ SCH ×4 (03:35→18:01)
[2020-05-28] MEDS: *HR* Heparin 5,000 UNIT/ML VIAL SQ SCH ×2 (06:05→16:04)
[2020-05-28] MEDS ORDERED: Potassium Phosphate 44 MEQ in 0.9 % Sodium Chloride 250 ML IVPB ONE (07:17)
[2020-05-28] MEDS: BuPROPion SR (12 HR) 100 MG TABLET PO SCH (08:48)
[2020-05-28] MEDS: predniSONE 10 MG TABLET PO SCH (08:48)
[2020-05-28] MEDS: Aspirin 81 MG TAB.CHEW PO SCH (08:48)
[2020-05-28] MEDS ORDERED: *HR* Propofol 200 MG/20 ML VIAL IVP ONE (11:23)
[2020-05-28] MEDS ORDERED: Lidocaine -MPF 2% 5 ML VIAL INFILT ONE (11:23)
[2020-05-28] MEDS: Ondansetron 4 MG/2 ML VIAL IVP PRN (17:09)
[2020-05-29] MEDS: Insulin LISPRO 300 UNITS/3 ML VIAL SUBQ SCH ×5 (00:02→20:29)
[2020-05-29] MEDS: Piperacillin/Tazobactam 3.375 GM in 0.9 % Sodium Chloride Mini Bag 100 ML IVPB SCH ×3 (03:42→20:28)
[2020-05-29] MEDS: *HR* Heparin 5,000 UNIT/ML VIAL SQ SCH ×2 (03:58→17:01)
[2020-05-29] MEDS: BuPROPion SR (12 HR) 100 MG TABLET PO SCH (08:58)
[2020-05-29] MEDS: predniSONE 10 MG TABLET PO SCH (08:58)
[2020-05-29] MEDS: Aspirin 81 MG TAB.CHEW PO SCH (08:58)
[2020-05-29] MEDS: Pantoprazole 40 MG VIAL IVP SCH (08:58)
[2020-05-29] MEDS: 0.9 % Sodium Chloride 1,000 ML IVC SCH (14:09)
[2020-05-29] MEDS ORDERED: D5% in Water 1,000 ML IVC PRN (15:18)
[2020-05-29] MEDS ORDERED: Dextrose Gel 15 GM/37.5 ML TUBE PO PRN ×2 (15:18)
[2020-05-29] MEDS ORDERED: *HR* Dextrose 50 % in Water (Vial) 50 ML VIAL IVP PRN (15:18)
[2020-05-29] MEDS ORDERED: Potassium Phosphate 44 MEQ in 0.9 % Sodium Chloride 250 ML IVPB ONE (15:35)
[2020-05-29] MEDS: Metoprolol XL (24 HR) Succ 50 MG TAB.ER.24H PO SCH (20:28)
[2020-05-30 02:53] LABS: BUN/Creatinine Ratio 38 (6-26); Blood Urea Nitrogen 32 mg/dL (8-23); Calcium 7.2 mg/dL (8.6-10.3); Carbon Dioxide 19 mEq/L (23-29); Chloride 112 mEq/L (98-107); Glucose 169 mg/dL (70-105); Magnesium 1.6 mg/dL (1.6-2.6); Osmolality,Calculated 299 (280-300); Potassium 4.5 mEq/L (3.5-5.1); Sodium 139 mEq/L (136-145); eGFR For African Americans > 60 (> 60); eGFR For Non-African Americans > 60 (> 60)
[2020-05-30 02:55] LABS: Hematocrit 32.7 % (35.3-44.9); Hemoglobin 10.3 g/dL (11.5-15.4); Mean Corpuscular HGB Conc 31.5 g/dL (31.6-35.5); Mean Corpuscular Hemoglobin 30.2 pg (28.0-33.3); Mean Corpuscular Volume 95.9 fL (83.0-100.0); Mean Platelet Volume 11.2 fL (9.4-12.4); Platelet Count 320 K/mcL (140-400); Red Blood Count 3.41 M/mcL (3.82-4.97); Red Cell Distribution Width 15.5 % (11.5-14.5)
[2020-05-30 02:59] LABS: Estimated Average Glucose 263 mg/dl; Hemoglobin A1C 10.8 %
[2020-05-30 03:07] LABS: Thyroid Stimulating Hormone 0.561 mcIU/mL (0.340-5.600)
[2020-05-30] MEDS: Piperacillin/Tazobactam 3.375 GM in 0.9 % Sodium Chloride Mini Bag 100 ML IVPB SCH ×2 (03:31→12:27)
[2020-05-30 04:23] LABS: Anisocytosis 1+ (Not Present); Lymphocytes # 2.1 K/mcL (0.6-4.6); Monocytes # 0.3 K/mcL (0.0-1.3); Neutrophils # 10.1 K/mcL (1.6-8.9); Platelet Estimate Normal (Normal); Poikilocytosis 2+ (Not Present); Toxic Granulation Present (Not Present)
[2020-05-30] MEDS: *HR* Heparin 5,000 UNIT/ML VIAL SQ SCH ×2 (05:06→16:58)
[2020-05-30] MEDS: BuPROPion SR (12 HR) 100 MG TABLET PO SCH (08:13)
[2020-05-30] MEDS: amLODIPine 5 MG TABLET PO SCH (08:13)
[2020-05-30] MEDS: Aspirin 81 MG TAB.CHEW PO SCH (08:13)
[2020-05-30] MEDS: Cholecalciferol (D-3) 1,000 UNIT (25MCG) TABLET PO SCH (08:13)
[2020-05-30] MEDS: Furosemide 40 MG TABLET PO SCH (08:13)
[2020-05-30] MEDS: predniSONE 10 MG TABLET PO SCH (08:14)
[2020-05-30] MEDS: Pantoprazole 40 MG VIAL IVP SCH (08:14)
[2020-05-30] MEDS: Insulin LISPRO 300 UNITS/3 ML VIAL SUBQ SCH ×4 (08:15→21:00)
[2020-05-30] MEDS: 0.9 % Sodium Chloride 1,000 ML IVC SCH (09:37)
[2020-05-30] MEDS: Fluconazole 200 MG/100 ML 200 MG/100 ML BAG IVPB SCH (16:59)
[2020-05-30] MEDS ORDERED: Sucralfate 1 GM TABLET PO SCH (21:00)
[2020-05-30] MEDS: Metoprolol XL (24 HR) Succ 50 MG TAB.ER.24H PO SCH (21:07)
[2020-05-31 04:28] LABS: Basophils % 0.3 %; Eosinophils % 0.1 %; Hematocrit 29.4 % (35.3-44.9); Hemoglobin 9.8 g/dL (11.5-15.4); Immature Granulocytes % 7.4 % (0-4); Lymphocytes # 1.7 K/mcL (0.6-4.6); Lymphocytes % 13.4 %; Mean Corpuscular HGB Conc 33.3 g/dL (31.6-35.5); Mean Corpuscular Hemoglobin 30.6 pg (28.0-33.3); Mean Corpuscular Volume 91.9 fL (83.0-100.0); Mean Platelet Volume 10.9 fL (9.4-12.4); Monocytes # 0.8 K/mcL (0.0-1.3); Monocytes % 6.4 %; Neutrophils # 8.9 K/mcL (1.6-8.9); Platelet Count 300 K/mcL (140-400); Red Cell Distribution Width 15.5 % (11.5-14.5); Segmented Neutrophils % 72.4 %; White Blood Count 12.3 K/mcL (4.3-11.1)
[2020-05-31 04:45] LABS: BUN/Creatinine Ratio 32 (6-26); Blood Urea Nitrogen 25 mg/dL (8-23); Calcium 7.6 mg/dL (8.6-10.3); Carbon Dioxide 19 mEq/L (23-29); Chloride 111 mEq/L (98-107); Glucose 124 mg/dL (70-105); Magnesium 2.2 mg/dL (1.6-2.6); Osmolality,Calculated 292 (280-300); Potassium 3.9 mEq/L (3.5-5.1); Sodium 138 mEq/L (136-145); eGFR For African Americans > 60 (> 60); eGFR For Non-African Americans > 60 (> 60)
[2020-05-31 05:11] LABS: Anisocytosis 1+ (Not Present); Poikilocytosis 1+ (Not Present)
[2020-05-31 05:12] LABS: Platelet Estimate Normal (Normal); Toxic Granulation Present (Not Present)
[2020-05-31] MEDS: *HR* Heparin 5,000 UNIT/ML VIAL SQ SCH ×2 (05:25→17:19)
[2020-05-31] MEDS: 0.9 % Sodium Chloride 1,000 ML IVC SCH (05:26)
[2020-05-31] MEDS: Insulin LISPRO 300 UNITS/3 ML VIAL SUBQ SCH ×3 (07:50→17:18)
[2020-05-31] MEDS: Fluconazole 200 MG/100 ML 200 MG/100 ML BAG IVPB SCH (10:04)
[2020-05-31] MEDS: Pantoprazole 40 MG VIAL IVP SCH (10:05)
[2020-05-31] MEDS: predniSONE 10 MG TABLET PO SCH (10:06)
[2020-05-31] MEDS: Cholecalciferol (D-3) 1,000 UNIT (25MCG) TABLET PO SCH (10:06)
[2020-05-31] MEDS: Aspirin 81 MG TAB.CHEW PO SCH ×2 (10:06→10:20)
[2020-05-31] MEDS: amLODIPine 5 MG TABLET PO SCH (10:06)
[2020-05-31] MEDS: BuPROPion SR (12 HR) 100 MG TABLET PO SCH (10:06)
[2020-05-31] MEDS: Furosemide 40 MG TABLET PO SCH (10:07)
[2020-05-31] MEDS: Ondansetron 4 MG/2 ML VIAL IVP PRN (11:53)
[2020-05-31 15:45] VITALS: BP 139/75
[2020-06-01 08:39] LABS: Adenovirus Not Detected (Not Detect); Bordetella Pertussis Not Detected (Not Detect); Chlamydophila pneumoniae Not Detected (Not Detect); Coronavirus 229E Not Detected (Not Detect); Coronavirus HKU1 Not Detected (Not Detect); Coronavirus NL63 Not Detected (Not Detect); Coronavirus OC43 Not Detected (Not Detect); Human Metapneumovirus Not Detected (Not Detect); Human Rhinovirus/Enterovirus Not Detected (Not Detect); Influenza A Subtype 2009 H1 Not Detected (Not Detect); Influenza B Not Detected (Not Detect); Mycoplasma pneumoniae Not Detected (Not Detect); Parainfluenza Virus 1 Not Detected (Not Detect); Parainfluenza Virus 2 Not Detected (Not Detect); Parainfluenza Virus 3 Not Detected (Not Detect); Parainfluenza Virus 4 Not Detected (Not Detect); Respiratory Syncytial Virus Not Detected (Not Detect); SARS-CoV-2 Not Detected (Not Detect)
== END 2020-05-31 19:01 | DRG 871 ==
LOC: EMEROOARM 10:15 → 2ANU 10:15 → SUATTDRO 14:03 → 2ANU 14:54 → SUATTDRO 05-27 13:06
PROVIDERS: ADMIT Internal Medicine; ATTEND Pharmacist
PROC: ENDOEBX (2020-05-29 14:30)

== ENCOUNTER 2020-06-21 12:47 | Inpatient (IN) ==
[2020-06-21 13:25] LABS: Basophils # 0.1 K/mcL (0.0-0.2); Eosinophils # 0.1 K/mcL (0.0-0.6); Eosinophils % 0.8 %; Hematocrit 34.2 % (35.3-44.9); Hemoglobin 11.2 g/dL (11.5-15.4); Immature Granulocytes % 0.8 % (0-4); Lymphocytes # 1.3 K/mcL (0.6-4.6); Lymphocytes % 11.3 %; Mean Corpuscular HGB Conc 32.7 g/dL (31.6-35.5); Mean Corpuscular Hemoglobin 29.2 pg (28.0-33.3); Mean Corpuscular Volume 89.3 fL (83.0-100.0); Mean Platelet Volume 11.3 fL (9.4-12.4); Monocytes # 0.4 K/mcL (0.0-1.3); Monocytes % 3.9 %; Neutrophils # 9.2 K/mcL (1.6-8.9); Platelet Count 182 K/mcL (140-400); Red Blood Count 3.83 M/mcL (3.82-4.97); Red Cell Distribution Width 15.2 % (11.5-14.5); Segmented Neutrophils % 82.2 %; White Blood Count 11.2 K/mcL (4.3-11.1)
[2020-06-21 13:39] LABS: INR 1.2; Prothrombin Time 13.3 Seconds (9.4-12.1)
[2020-06-21 13:53] LABS: Alanine Aminotransferase 20 Units/L (7-52); Albumin 2.8 g/dL (3.5-5.7); Albumin/Globulin Ratio 1.2 (1.1-2.2); Alkaline Phosphatase 40 Units/L (34-104); Aspartate Amino Transferase 21 Units/L (13-39); BUN/Creatinine Ratio 18 (6-26); Bilirubin,Direct 0.2 mg/dL (0.0-0.2); Bilirubin,Indirect 0.7 mg/dL (0.0-1.0); Bilirubin,Total 0.9 mg/dL (0.3-1.0); Blood Urea Nitrogen 15 mg/dL (8-23); Calcium 8.4 mg/dL (8.6-10.3); Carbon Dioxide 28 mEq/L (23-29); Chloride 100 mEq/L (98-107); Glucose 97 mg/dL (70-105); Osmolality,Calculated 283 (280-300); Potassium 2.7 mEq/L (3.5-5.1); Sodium 136 mEq/L (136-145); Total Protein 5.1 g/dL (6.4-8.9); eGFR For African Americans > 60 (> 60); eGFR For Non-African Americans > 60 (> 60)
[2020-06-21 13:54] LABS: Ethanol < 10 mg/dL (Less than 10); Globulin 2.3 g/dL (2.4-3.5); Troponin I 0.03 ng/mL (< 0.04)
[2020-06-21 14:00] LABS: Thyroid Stimulating Hormone 1.047 mcIU/mL (0.340-5.600)
[2020-06-21] MEDS ORDERED: Potassium Chloride 40 MEQ, Lidocaine 1% 2 ML in 0.9 % Sodium Chloride 500 ML IVPB ONE (14:25)
[2020-06-21 14:45] LABS: Bilirubin,Urine Negative (Negative); Blood,Urine Small (Negative); Clarity,Urine Ex.Turbid (Clear); Color,Urine Dark-Orange (Yellow); Glucose,Urine (UA) Normal (Normal); Ketones,Urine Negative (Negative); Leukocyte Esterase,Urine Large (Negative); Nitrite,Urine Positive (Negative); PH,Urine 5.5 pH Units (5.0-8.0); Protein,Urine 200 mg/dL (Neg-Trace); Specific Gravity,Urine 1.014 (1.010-1.025); Urobilinogen,Urine Normal (Normal)
[2020-06-21 14:49] LABS: WBC,Urine TNTC per hpf (0-3)
[2020-06-21 14:50] LABS: Bacteria,Urine Present per hpf (None-Few)
[2020-06-21 14:51] LABS: Budding Yeast,Urine Present per hpf (None Seen); RBC,Urine Present per hpf (0-3)
[2020-06-21 14:58] LABS: Amphetamine Screen,Urine Negative ng/mL (Cutoff=1000); Barbiturate Screen,Urine Negative ng/mL (Cutoff=200); Benzodiazepines Screen,Urine Negative ng/mL (Cutoff=200); Cannabinoid Screen,Urine Negative ng/mL (Cutoff = 50); Cocaine Screen,Urine Negative ng/mL (Cutoff= 300); Opiate Screen,Urine Negative ng/mL (Cutoff=300); Phencyclidine Screen,Urine Negative ng/mL (Cutoff=25)
[2020-06-21] MEDS ORDERED: Piperacillin/Tazobactam 3.375 GM in 0.9 % Sodium Chloride Mini Bag 100 ML IVPB ONE (15:43)
[2020-06-21] MEDS ORDERED: Naloxone 0.4 MG/ML INJ IVP PRN (16:50)
[2020-06-21] MEDS ORDERED: Acetaminophen 325 MG TABLET PO PRN (16:50)
[2020-06-21] MEDS ORDERED: Albuterol 2.5 MG/3 ML NEBULIZER IH PRN (16:56)
[2020-06-21] MEDS ORDERED: *HR* Dextrose 50 % in Water (Vial) 50 ML VIAL IVP PRN (17:01)
[2020-06-21] MEDS ORDERED: Dextrose Gel 15 GM/37.5 ML TUBE PO PRN ×2 (17:01)
[2020-06-21] MEDS ORDERED: D5% in Water 1,000 ML IVC PRN (17:01)
[2020-06-21] MEDS: *HR* Heparin 5,000 UNIT/ML VIAL SQ SCH (19:43)
[2020-06-21] MEDS: Insulin LISPRO 300 UNITS/3 ML VIAL SUBQ SCH (20:26)
[2020-06-21] MEDS ORDERED: Potassium Chloride Elixir 20 MEQ/15 ML UDC PO ONE (22:00)
[2020-06-21] MEDS: Piperacillin/Tazobactam 3.375 GM in 0.9 % Sodium Chloride Mini Bag 100 ML IVPB SCH (23:46)
[2020-06-22] MEDS: *HR* Heparin 5,000 UNIT/ML VIAL SQ SCH ×3 (05:45→20:43)
[2020-06-22 05:50] LABS: Basophils # 0.1 K/mcL (0.0-0.2); Eosinophils # 0.3 K/mcL (0.0-0.6); Eosinophils % 2.4 %; Hematocrit 35.2 % (35.3-44.9); Hemoglobin 11.4 g/dL (11.5-15.4); Immature Granulocytes % 0.9 % (0-4); Lymphocytes # 1.7 K/mcL (0.6-4.6); Lymphocytes % 15.6 %; Mean Corpuscular HGB Conc 32.4 g/dL (31.6-35.5); Mean Corpuscular Hemoglobin 29.4 pg (28.0-33.3); Mean Corpuscular Volume 90.7 fL (83.0-100.0); Mean Platelet Volume 10.8 fL (9.4-12.4); Monocytes # 0.6 K/mcL (0.0-1.3); Monocytes % 5.3 %; Neutrophils # 8.3 K/mcL (1.6-8.9); Platelet Count 166 K/mcL (140-400); Red Blood Count 3.88 M/mcL (3.82-4.97); Red Cell Distribution Width 15.3 % (11.5-14.5); Segmented Neutrophils % 74.8 %; White Blood Count 11.1 K/mcL (4.3-11.1)
[2020-06-22 06:12] LABS: BUN/Creatinine Ratio 16 (6-26); Blood Urea Nitrogen 15 mg/dL (8-23); Carbon Dioxide 25 mEq/L (23-29); Chloride 106 mEq/L (98-107); Glucose 59 mg/dL (70-105); Osmolality,Calculated 285 (280-300); Potassium 3.3 mEq/L (3.5-5.1); Sodium 138 mEq/L (136-145); eGFR For African Americans > 60 (> 60); eGFR For Non-African Americans 58 (> 60)
[2020-06-22] MEDS: Insulin LISPRO 300 UNITS/3 ML VIAL SUBQ SCH ×4 (08:00→20:36)
[2020-06-22] MEDS: Calcium Gluconate 1gm/50mL 1 GM/50 ML BAG IVPB SCH ×2 (08:20→12:02)
[2020-06-22] MEDS: amLODIPine 5 MG TABLET PO SCH (08:20)
[2020-06-22] MEDS: Piperacillin/Tazobactam 3.375 GM in 0.9 % Sodium Chloride Mini Bag 100 ML IVPB SCH ×2 (08:20→17:37)
[2020-06-22] MEDS: Aspirin 81 MG TAB.CHEW PO SCH (08:21)
[2020-06-22 08:22] LABS: Magnesium 1.5 mg/dL (1.6-2.6); Phosphorous 2.7 mg/dL (2.7-4.5)
[2020-06-22] MEDS ORDERED: predniSONE 5 MG TABLET PO SCH (09:00)
[2020-06-22] MEDS: Multivit/Ca/Min/Fe/FA 1 TAB TABLET PO SCH (11:55)
[2020-06-22] MEDS ORDERED: *HR* LORazepam 2 MG/ML VIAL IVP PRN (17:49)
[2020-06-22] MEDS: Sucralfate 1 GM TABLET PO SCH (20:29)
[2020-06-22] MEDS: Metoprolol XL (24 HR) Succ 50 MG TAB.ER.24H PO SCH (20:29)
[2020-06-22] MEDS ORDERED: Metoprolol XL (24 HR) Succ 50 MG TAB.ER.24H PO SCH (21:00)
[2020-06-23] MEDS: Piperacillin/Tazobactam 3.375 GM in 0.9 % Sodium Chloride Mini Bag 100 ML IVPB SCH ×3 (02:38→17:24)
[2020-06-23 03:05] LABS: Hematocrit 33.3 % (35.3-44.9); Hemoglobin 10.7 g/dL (11.5-15.4); Mean Corpuscular HGB Conc 32.1 g/dL (31.6-35.5); Mean Corpuscular Hemoglobin 29.6 pg (28.0-33.3); Mean Platelet Volume 11.4 fL (9.4-12.4); Platelet Count 197 K/mcL (140-400); Red Blood Count 3.62 M/mcL (3.82-4.97); Red Cell Distribution Width 15.4 % (11.5-14.5); White Blood Count 11.1 K/mcL (4.3-11.1)
[2020-06-23 03:24] LABS: Estimated Average Glucose 186 mg/dl; Hemoglobin A1C 8.1 %
[2020-06-23 03:35] LABS: % Iron Saturation 14 % (15-50); Iron 24 mcg/dL (50-170); Transferrin 126 mg/dL (203-362)
[2020-06-23 03:48] LABS: BUN/Creatinine Ratio 17 (6-26); Blood Urea Nitrogen 17 mg/dL (8-23); Carbon Dioxide 22 mEq/L (23-29); Chloride 103 mEq/L (98-107); Glucose 85 mg/dL (70-105); Magnesium 2.1 mg/dL (1.6-2.6); Osmolality,Calculated 281 (280-300); Phosphorous 3.5 mg/dL (2.7-4.5); Potassium 3.9 mEq/L (3.5-5.1); Sodium 135 mEq/L (136-145); eGFR For African Americans > 60 (> 60); eGFR For Non-African Americans 51 (> 60)
[2020-06-23 03:49] LABS: Ferritin 243 ng/mL (10-120)
[2020-06-23 03:54] LABS: Folate 9.7 ng/mL (3.0-16.0)
[2020-06-23] MEDS ORDERED: Iron Sucrose Complex 400 MG in 0.9 % Sodium Chloride 250 ML IVPB ONE (07:46)
[2020-06-23] MEDS: Insulin LISPRO 300 UNITS/3 ML VIAL SUBQ SCH ×4 (08:05→20:15)
[2020-06-23] MEDS: Aspirin 81 MG TAB.CHEW PO SCH (08:56)
[2020-06-23] MEDS: Cholecalciferol (D-3) 1,000 UNIT (25MCG) TABLET PO SCH (08:56)
[2020-06-23] MEDS: lisinopriL 10 MG TABLET PO SCH (08:56)
[2020-06-23] MEDS: BuPROPion SR (12 HR) 100 MG TABLET PO SCH (08:56)
[2020-06-23] MEDS: Multivit/Ca/Min/Fe/FA 1 TAB TABLET PO SCH (08:57)
[2020-06-23] MEDS: amLODIPine 5 MG TABLET PO SCH (08:57)
[2020-06-23] MEDS: Calcium Gluconate 1gm/50mL 1 GM/50 ML BAG IVPB SCH ×2 (09:10→13:30)
[2020-06-23] MEDS: *HR* Heparin 5,000 UNIT/ML VIAL SQ SCH (17:16)
[2020-06-23] MEDS: Ondansetron 4 MG/2 ML VIAL IVP PRN (17:24)
[2020-06-23] MEDS: Metoprolol XL (24 HR) Succ 50 MG TAB.ER.24H PO SCH (20:12)
[2020-06-23] MEDS: Sucralfate 1 GM TABLET PO SCH (20:12)
[2020-06-24] MEDS: Piperacillin/Tazobactam 3.375 GM in 0.9 % Sodium Chloride Mini Bag 100 ML IVPB SCH ×3 (00:38→16:24)
[2020-06-24] MEDS: *HR* Heparin 5,000 UNIT/ML VIAL SQ SCH ×3 (00:42→16:33)
[2020-06-24 02:26] LABS: Hematocrit 35.1 % (35.3-44.9); Hemoglobin 11.3 g/dL (11.5-15.4); Mean Corpuscular HGB Conc 32.2 g/dL (31.6-35.5); Mean Corpuscular Hemoglobin 29.5 pg (28.0-33.3); Mean Corpuscular Volume 91.6 fL (83.0-100.0); Mean Platelet Volume 11.1 fL (9.4-12.4); Platelet Count 161 K/mcL (140-400); Red Blood Count 3.83 M/mcL (3.82-4.97); Red Cell Distribution Width 15.4 % (11.5-14.5); White Blood Count 13.3 K/mcL (4.3-11.1)
[2020-06-24 02:44] LABS: Calcium 8.1 mg/dL (8.6-10.3); Magnesium 1.6 mg/dL (1.6-2.6); Phosphorous 3.6 mg/dL (2.7-4.5); Potassium 3.4 mEq/L (3.5-5.1)
[2020-06-24] MEDS: Insulin LISPRO 300 UNITS/3 ML VIAL SUBQ SCH ×4 (09:16→20:55)
[2020-06-24] MEDS: lisinopriL 10 MG TABLET PO SCH (11:06)
[2020-06-24] MEDS: amLODIPine 5 MG TABLET PO SCH (11:06)
[2020-06-24] MEDS: Cholecalciferol (D-3) 1,000 UNIT (25MCG) TABLET PO SCH (11:06)
[2020-06-24] MEDS: Thiamine (B-1) 100 MG TABLET PO SCH (11:06)
[2020-06-24] MEDS: Multivit/Ca/Min/Fe/FA 1 TAB TABLET PO SCH (11:06)
[2020-06-24] MEDS: Aspirin 81 MG TAB.CHEW PO SCH (11:06)
[2020-06-24] MEDS: BuPROPion SR (12 HR) 100 MG TABLET PO SCH (11:11)
[2020-06-24] MEDS: Calcium Gluconate 1gm/50mL 1 GM/50 ML BAG IVPB SCH ×2 (14:48→16:29)
[2020-06-24] MEDS: Sucralfate 1 GM TABLET PO SCH (20:54)
[2020-06-24] MEDS: Metoprolol XL (24 HR) Succ 50 MG TAB.ER.24H PO SCH (20:54)
[2020-06-25] MEDS: Piperacillin/Tazobactam 3.375 GM in 0.9 % Sodium Chloride Mini Bag 100 ML IVPB SCH (00:58)
[2020-06-25 05:46] LABS: Hemoglobin 10.3 g/dL (11.5-15.4); Mean Corpuscular HGB Conc 32.2 g/dL (31.6-35.5); Mean Corpuscular Hemoglobin 29.1 pg (28.0-33.3); Mean Corpuscular Volume 90.4 fL (83.0-100.0); Mean Platelet Volume 11.7 fL (9.4-12.4); Platelet Count 156 K/mcL (140-400); Red Blood Count 3.54 M/mcL (3.82-4.97); Red Cell Distribution Width 15.4 % (11.5-14.5); White Blood Count 19.3 K/mcL (4.3-11.1)
[2020-06-25 06:07] LABS: Calcium 8.4 mg/dL (8.6-10.3); Magnesium 2.2 mg/dL (1.6-2.6); Phosphorous 3.7 mg/dL (2.7-4.5); Potassium 3.9 mEq/L (3.5-5.1)
[2020-06-25] MEDS: *HR* Heparin 5,000 UNIT/ML VIAL SQ SCH ×2 (06:18→17:44)
[2020-06-25] MEDS: Insulin LISPRO 300 UNITS/3 ML VIAL SUBQ SCH ×4 (07:42→22:10)
[2020-06-25] MEDS: lisinopriL 10 MG TABLET PO SCH (07:46)
[2020-06-25] MEDS: amLODIPine 5 MG TABLET PO SCH (07:47)
[2020-06-25] MEDS: Multivit/Ca/Min/Fe/FA 1 TAB TABLET PO SCH (07:58)
[2020-06-25] MEDS: Aspirin 81 MG TAB.CHEW PO SCH (07:58)
[2020-06-25] MEDS: Cholecalciferol (D-3) 1,000 UNIT (25MCG) TABLET PO SCH (07:58)
[2020-06-25] MEDS: Thiamine (B-1) 100 MG TABLET PO SCH (07:58)
[2020-06-25] MEDS: BuPROPion SR (12 HR) 100 MG TABLET PO SCH (07:58)
[2020-06-25] MEDS ORDERED: levoFLOXacin 750 MG TABLET PO SCH (09:00)
[2020-06-25] MEDS: Ringers Solution, Lactated 1,000 ML IVC SCH ×2 (09:23→22:25)
[2020-06-25 09:27] LABS: Hematocrit 33.4 % (35.3-44.9); Hemoglobin 10.8 g/dL (11.5-15.4); Mean Corpuscular HGB Conc 32.3 g/dL (31.6-35.5); Mean Corpuscular Hemoglobin 29.3 pg (28.0-33.3); Mean Corpuscular Volume 90.5 fL (83.0-100.0); Mean Platelet Volume 11.6 fL (9.4-12.4); Platelet Count 165 K/mcL (140-400); Red Blood Count 3.69 M/mcL (3.82-4.97); Red Cell Distribution Width 15.5 % (11.5-14.5); White Blood Count 18.4 K/mcL (4.3-11.1)
[2020-06-25 11:21] LABS: Adenovirus F 40/41 PCR Not detected (Not detect); Astrovirus PCR Not detected (Not detect); C.difficile Toxin A/B Gene PCR Not detected (Not detect); Campylobacter by PCR Not detected (Not detect); Cryptosporidium by PCR Not detected (Not detect); Cyclospora cayetanensis PCR Not detected (Not detect); E. coli O157 by PCR Not detected (Not detect); Entamoeba histolytica PCR Not detected (Not detect); Enteroaggregative E.coli(EAEC) Not detected (Not detect); Enteropathogenic E.coli(EPEC) Not detected (Not detect); Enterotoxigenic E.coli (ETEC) Not detected (Not detect); Giardia lamblia PCR Not detected (Not detect); Norovirus GI/GII PCR Not detected (Not detect); Plesiomonas shigelloides PCR Not detected (Not detect); Rotavirus A PCR Not detected (Not detect); Salmonella PCR Not detected (Not detect); Sapovirus PCR Not detected (Not detect); Shig/EnteroinvasiveE coli EIEC Not detected (Not detect); Shigalike tox-prod E coli STEC Not detected (Not detect); Vibrio PCR Not detected (Not detect); Vibrio cholerae PCR Not detected (Not detect); Yersinia enterocolitica PCR Not detected (Not detect)
[2020-06-25 11:34] LABS: Eosinophils # 0.4 K/mcL (0.0-0.6); Lymphocytes # 2.9 K/mcL (0.6-4.6); Monocytes # 0.4 K/mcL (0.0-1.3); Neutrophils # 14.7 K/mcL (1.6-8.9); Reactive Lymphocytes Present (Not Present); Toxic Granulation Present (Not Present)
[2020-06-25 11:36] LABS: Burr Cells 1+ (Not Present); Platelet Estimate Normal (Normal)
[2020-06-25] MEDS ORDERED: Doxycycline 100 MG CAPSULE PO SCH (21:00)
[2020-06-25] MEDS ORDERED: Vancomycin 1,250 MG/262.5 ML IV.SOLN IVPB ONE (22:00)
[2020-06-25] MEDS: Melatonin 3 MG TABLET PO PRN (22:19)
[2020-06-25] MEDS: Sucralfate 1 GM TABLET PO SCH (22:19)
[2020-06-25] MEDS: Metoprolol XL (24 HR) Succ 50 MG TAB.ER.24H PO SCH (22:19)
[2020-06-26 06:25] LABS: Hematocrit 29.5 % (35.3-44.9); Hemoglobin 9.3 g/dL (11.5-15.4); Mean Corpuscular HGB Conc 31.5 g/dL (31.6-35.5); Mean Corpuscular Hemoglobin 28.9 pg (28.0-33.3); Mean Corpuscular Volume 91.6 fL (83.0-100.0); Platelet Count 145 K/mcL (140-400); Red Blood Count 3.22 M/mcL (3.82-4.97); Red Cell Distribution Width 15.3 % (11.5-14.5); White Blood Count 15.7 K/mcL (4.3-11.1)
[2020-06-26] MEDS: *HR* Heparin 5,000 UNIT/ML VIAL SQ SCH ×2 (06:40→18:33)
[2020-06-26] MEDS: Piperacillin/Tazobactam 3.375 GM in 0.9 % Sodium Chloride Mini Bag 100 ML IVPB SCH ×2 (06:40→18:33)
[2020-06-26 06:56] LABS: Calcium 8.2 mg/dL (8.6-10.3); Magnesium 1.8 mg/dL (1.6-2.6); Phosphorous 2.7 mg/dL (2.7-4.5); Potassium 3.7 mEq/L (3.5-5.1)
[2020-06-26] MEDS: Insulin LISPRO 300 UNITS/3 ML VIAL SUBQ SCH ×4 (07:30→22:41)
[2020-06-26] MEDS: Aspirin 81 MG TAB.CHEW PO SCH (10:07)
[2020-06-26] MEDS: Thiamine (B-1) 100 MG TABLET PO SCH (10:08)
[2020-06-26] MEDS: amLODIPine 5 MG TABLET PO SCH (10:08)
[2020-06-26] MEDS: Multivit/Ca/Min/Fe/FA 1 TAB TABLET PO SCH (10:08)
[2020-06-26] MEDS: Cholecalciferol (D-3) 1,000 UNIT (25MCG) TABLET PO SCH (10:08)
[2020-06-26] MEDS: BuPROPion SR (12 HR) 100 MG TABLET PO SCH (10:08)
[2020-06-26] MEDS: Ondansetron 4 MG/2 ML VIAL IVP PRN ×2 (14:26→22:39)
[2020-06-26] MEDS ORDERED: Piperacillin/Tazobactam 3.375 GM in 0.9 % Sodium Chloride Mini Bag 100 ML IVPB SCH (21:00)
[2020-06-26] MEDS: Sucralfate 1 GM TABLET PO SCH ×2 (22:39→22:53)
[2020-06-26] MEDS: Metoprolol XL (24 HR) Succ 50 MG TAB.ER.24H PO SCH (22:40)
[2020-06-26] MEDS: Melatonin 3 MG TABLET PO PRN (22:40)
[2020-06-27] MEDS: Piperacillin/Tazobactam 3.375 GM in 0.9 % Sodium Chloride Mini Bag 100 ML IVPB SCH ×3 (06:26→20:47)
[2020-06-27] MEDS: *HR* Heparin 5,000 UNIT/ML VIAL SQ SCH ×2 (06:26→17:57)
[2020-06-27] MEDS: Ondansetron 4 MG/2 ML VIAL IVP PRN (06:26)
[2020-06-27 06:48] LABS: Basophils # 0.2 K/mcL (0.0-0.2); Basophils % 1.6 %; Eosinophils # 0.1 K/mcL (0.0-0.6); Eosinophils % 0.7 %; Hematocrit 29.7 % (35.3-44.9); Hemoglobin 9.5 g/dL (11.5-15.4); Immature Granulocytes % 1.6 % (0-4); Lymphocytes # 4.4 K/mcL (0.6-4.6); Lymphocytes % 31.4 %; Mean Corpuscular Hemoglobin 29.5 pg (28.0-33.3); Mean Corpuscular Volume 92.2 fL (83.0-100.0); Mean Platelet Volume 11.3 fL (9.4-12.4); Monocytes # 0.9 K/mcL (0.0-1.3); Monocytes % 6.4 %; Neutrophils # 8.2 K/mcL (1.6-8.9); Platelet Count 148 K/mcL (140-400); Red Blood Count 3.22 M/mcL (3.82-4.97); Red Cell Distribution Width 15.4 % (11.5-14.5); Segmented Neutrophils % 58.3 %; White Blood Count 14.1 K/mcL (4.3-11.1)
[2020-06-27 07:09] LABS: Calcium 8.3 mg/dL (8.6-10.3); Potassium 3.6 mEq/L (3.5-5.1)
[2020-06-27 07:46] LABS: Platelet Estimate Normal (Normal); Reactive Lymphocytes Present (Not Present)
[2020-06-27] MEDS: Insulin LISPRO 300 UNITS/3 ML VIAL SUBQ SCH ×4 (08:12→20:51)
[2020-06-27] MEDS: amLODIPine 5 MG TABLET PO SCH (10:02)
[2020-06-27] MEDS: Thiamine (B-1) 100 MG TABLET PO SCH (10:03)
[2020-06-27] MEDS: Multivit/Ca/Min/Fe/FA 1 TAB TABLET PO SCH (10:03)
[2020-06-27] MEDS: Aspirin 81 MG TAB.CHEW PO SCH (10:04)
[2020-06-27] MEDS: Cholecalciferol (D-3) 1,000 UNIT (25MCG) TABLET PO SCH (10:04)
[2020-06-27] MEDS: BuPROPion SR (12 HR) 100 MG TABLET PO SCH (10:05)
[2020-06-27] MEDS: Sucralfate 1 GM TABLET PO SCH (20:51)
[2020-06-27] MEDS: Metoprolol XL (24 HR) Succ 50 MG TAB.ER.24H PO SCH (20:51)
[2020-06-28 02:54] LABS: BUN/Creatinine Ratio 23 (6-26); Blood Urea Nitrogen 24 mg/dL (8-23); Calcium 8.5 mg/dL (8.6-10.3); Carbon Dioxide 18 mEq/L (23-29); Chloride 102 mEq/L (98-107); Glucose 113 mg/dL (70-105); Osmolality,Calculated 275 (280-300); Potassium 3.6 mEq/L (3.5-5.1); Sodium 130 mEq/L (136-145); eGFR For African Americans > 60 (> 60); eGFR For Non-African Americans 50 (> 60)
[2020-06-28 03:15] LABS: Basophils # 0.3 K/mcL (0.0-0.2); Basophils % 1.7 %; Eosinophils # 0.1 K/mcL (0.0-0.6); Eosinophils % 0.7 %; Hematocrit 34.2 % (35.3-44.9); Immature Granulocytes % 1.6 % (0-4); Lymphocytes # 5.3 K/mcL (0.6-4.6); Lymphocytes % 31.5 %; Mean Corpuscular HGB Conc 32.2 g/dL (31.6-35.5); Mean Corpuscular Hemoglobin 29.5 pg (28.0-33.3); Mean Corpuscular Volume 91.7 fL (83.0-100.0); Mean Platelet Volume 11.3 fL (9.4-12.4); Monocytes # 0.9 K/mcL (0.0-1.3); Monocytes % 5.6 %; Neutrophils # 9.9 K/mcL (1.6-8.9); Platelet Count 175 K/mcL (140-400); Red Blood Count 3.73 M/mcL (3.82-4.97); Red Cell Distribution Width 16.2 % (11.5-14.5); Segmented Neutrophils % 58.9 %; White Blood Count 16.8 K/mcL (4.3-11.1)
[2020-06-28 03:22] LABS: Platelet Estimate Normal (Normal); Reactive Lymphocytes Present (Not Present)
[2020-06-28] MEDS: *HR* Heparin 5,000 UNIT/ML VIAL SQ SCH ×2 (05:21→17:36)
[2020-06-28] MEDS: Piperacillin/Tazobactam 3.375 GM in 0.9 % Sodium Chloride Mini Bag 100 ML IVPB SCH ×3 (05:21→21:00)
[2020-06-28] MEDS: Insulin LISPRO 300 UNITS/3 ML VIAL SUBQ SCH ×4 (08:45→20:58)
[2020-06-28] MEDS: amLODIPine 5 MG TABLET PO SCH (08:56)
[2020-06-28] MEDS: Aspirin 81 MG TAB.CHEW PO SCH ×2 (08:56→09:04)
[2020-06-28] MEDS: Cholecalciferol (D-3) 1,000 UNIT (25MCG) TABLET PO SCH ×2 (08:56→09:04)
[2020-06-28] MEDS: Multivit/Ca/Min/Fe/FA 1 TAB TABLET PO SCH ×2 (08:56→09:04)
[2020-06-28] MEDS: BuPROPion SR (12 HR) 100 MG TABLET PO SCH ×2 (08:56→09:04)
[2020-06-28] MEDS: Thiamine (B-1) 100 MG TABLET PO SCH ×2 (08:56→09:04)
[2020-06-28] MEDS: Ondansetron 4 MG/2 ML VIAL IVP PRN (08:59)
[2020-06-28] MEDS: Sucralfate 1 GM TABLET PO SCH (20:58)
[2020-06-28] MEDS: Metoprolol XL (24 HR) Succ 50 MG TAB.ER.24H PO SCH (20:58)
[2020-06-29 03:56] LABS: Basophils # 0.3 K/mcL (0.0-0.2); Basophils % 1.4 %; Eosinophils % 0.1 %; Hematocrit 33.4 % (35.3-44.9); Hemoglobin 10.7 g/dL (11.5-15.4); Immature Granulocytes % 1.9 % (0-4); Lymphocytes # 5.6 K/mcL (0.6-4.6); Mean Corpuscular Hemoglobin 29.2 pg (28.0-33.3); Mean Corpuscular Volume 91.3 fL (83.0-100.0); Monocytes # 1.5 K/mcL (0.0-1.3); Monocytes % 6.7 %; Neutrophils # 13.8 K/mcL (1.6-8.9); Platelet Count 174 K/mcL (140-400); Red Blood Count 3.66 M/mcL (3.82-4.97); Red Cell Distribution Width 16.5 % (11.5-14.5); Segmented Neutrophils % 63.9 %; White Blood Count 21.6 K/mcL (4.3-11.1)
[2020-06-29 04:09] LABS: Calcium 8.9 mg/dL (8.6-10.3); Potassium 3.9 mEq/L (3.5-5.1)
[2020-06-29] MEDS: Piperacillin/Tazobactam 3.375 GM in 0.9 % Sodium Chloride Mini Bag 100 ML IVPB SCH ×3 (05:08→20:16)
[2020-06-29] MEDS: *HR* Heparin 5,000 UNIT/ML VIAL SQ SCH ×2 (05:09→17:16)
[2020-06-29] MEDS: Insulin LISPRO 300 UNITS/3 ML VIAL SUBQ SCH ×4 (07:56→20:12)
[2020-06-29] MEDS: Ondansetron 4 MG/2 ML VIAL IVP PRN ×2 (09:11→17:19)
[2020-06-29] MEDS: 0.9 % Sodium Chloride 1,000 ML IVC SCH (09:11)
[2020-06-29] MEDS: amLODIPine 5 MG TABLET PO SCH (12:55)
[2020-06-29] MEDS: Cholecalciferol (D-3) 1,000 UNIT (25MCG) TABLET PO SCH (12:55)
[2020-06-29] MEDS: Thiamine (B-1) 100 MG TABLET PO SCH (12:55)
[2020-06-29] MEDS: Aspirin 81 MG TAB.CHEW PO SCH (12:55)
[2020-06-29] MEDS: Multivit/Ca/Min/Fe/FA 1 TAB TABLET PO SCH (12:55)
[2020-06-29] MEDS: BuPROPion SR (12 HR) 100 MG TABLET PO SCH (12:56)
[2020-06-29] MEDS: Metoprolol XL (24 HR) Succ 50 MG TAB.ER.24H PO SCH (17:19)
[2020-06-29] MEDS: Sucralfate 1 GM TABLET PO SCH (20:12)
[2020-06-30] MEDS: 0.9 % Sodium Chloride 1,000 ML IVC SCH (05:21)
[2020-06-30] MEDS: *HR* Heparin 5,000 UNIT/ML VIAL SQ SCH ×2 (05:21→17:36)
[2020-06-30] MEDS: Piperacillin/Tazobactam 3.375 GM in 0.9 % Sodium Chloride Mini Bag 100 ML IVPB SCH ×3 (05:22→22:50)
[2020-06-30 06:16] LABS: Basophils # 0.3 K/mcL (0.0-0.2); Basophils % 1.4 %; Eosinophils # 0.2 K/mcL (0.0-0.6); Eosinophils % 0.8 %; Hemoglobin 10.5 g/dL (11.5-15.4); Immature Granulocytes % 1.3 % (0-4); Lymphocytes # 3.6 K/mcL (0.6-4.6); Lymphocytes % 19.4 %; Mean Corpuscular HGB Conc 32.8 g/dL (31.6-35.5); Mean Corpuscular Hemoglobin 30.2 pg (28.0-33.3); Mean Platelet Volume 10.7 fL (9.4-12.4); Monocytes # 1.2 K/mcL (0.0-1.3); Monocytes % 6.5 %; Neutrophils # 13.3 K/mcL (1.6-8.9); Platelet Count 179 K/mcL (140-400); Red Blood Count 3.48 M/mcL (3.82-4.97); Red Cell Distribution Width 16.9 % (11.5-14.5); Segmented Neutrophils % 70.6 %; White Blood Count 18.8 K/mcL (4.3-11.1)
[2020-06-30 06:36] LABS: Calcium 8.5 mg/dL (8.6-10.3); Potassium 3.5 mEq/L (3.5-5.1)
[2020-06-30] MEDS: Insulin LISPRO 300 UNITS/3 ML VIAL SUBQ SCH ×4 (09:53→20:17)
[2020-06-30] MEDS: Aspirin 81 MG TAB.CHEW PO SCH (09:53)
[2020-06-30] MEDS: amLODIPine 5 MG TABLET PO SCH (09:53)
[2020-06-30] MEDS: Cholecalciferol (D-3) 1,000 UNIT (25MCG) TABLET PO SCH (09:54)
[2020-06-30] MEDS: BuPROPion SR (12 HR) 100 MG TABLET PO SCH (09:54)
[2020-06-30] MEDS: Thiamine (B-1) 100 MG TABLET PO SCH (09:54)
[2020-06-30] MEDS: Multivit/Ca/Min/Fe/FA 1 TAB TABLET PO SCH (09:54)
[2020-06-30] MEDS: Sucralfate 1 GM TABLET PO SCH (20:17)
[2020-06-30] MEDS: Metoprolol XL (24 HR) Succ 50 MG TAB.ER.24H PO SCH (20:18)
[2020-07-01] MEDS: Piperacillin/Tazobactam 3.375 GM in 0.9 % Sodium Chloride Mini Bag 100 ML IVPB SCH ×2 (05:24→14:56)
[2020-07-01] MEDS: *HR* Heparin 5,000 UNIT/ML VIAL SQ SCH (05:24)
[2020-07-01] MEDS: 0.9 % Sodium Chloride 1,000 ML IVC SCH (05:25)
[2020-07-01] MEDS: Insulin LISPRO 300 UNITS/3 ML VIAL SUBQ SCH ×2 (08:30→11:41)
[2020-07-01] MEDS: Aspirin 81 MG TAB.CHEW PO SCH (10:17)
[2020-07-01] MEDS: BuPROPion SR (12 HR) 100 MG TABLET PO SCH (10:17)
[2020-07-01] MEDS: Thiamine (B-1) 100 MG TABLET PO SCH (10:17)
[2020-07-01] MEDS: Cholecalciferol (D-3) 1,000 UNIT (25MCG) TABLET PO SCH (10:17)
[2020-07-01] MEDS: Multivit/Ca/Min/Fe/FA 1 TAB TABLET PO SCH (10:17)
[2020-07-01] MEDS: amLODIPine 5 MG TABLET PO SCH (10:17)
[2020-07-01 10:37] LABS: Basophils # 0.3 K/mcL (0.0-0.2); Basophils % 1.6 %; Eosinophils # 0.1 K/mcL (0.0-0.6); Eosinophils % 0.8 %; Hemoglobin 10.2 g/dL (11.5-15.4); Immature Granulocytes % 1.3 % (0-4); Mean Corpuscular HGB Conc 31.9 g/dL (31.6-35.5); Mean Corpuscular Hemoglobin 29.4 pg (28.0-33.3); Mean Corpuscular Volume 92.2 fL (83.0-100.0); Monocytes # 0.9 K/mcL (0.0-1.3); Monocytes % 6.1 %; Neutrophils # 9.9 K/mcL (1.6-8.9); Platelet Count 164 K/mcL (140-400); Red Blood Count 3.47 M/mcL (3.82-4.97); Red Cell Distribution Width 17.3 % (11.5-14.5); Segmented Neutrophils % 64.2 %; White Blood Count 15.4 K/mcL (4.3-11.1)
[2020-07-01 11:04] LABS: BUN/Creatinine Ratio 27 (6-26); Blood Urea Nitrogen 28 mg/dL (8-23); Calcium 8.6 mg/dL (8.6-10.3); Carbon Dioxide 18 mEq/L (23-29); Chloride 107 mEq/L (98-107); Glucose 89 mg/dL (70-105); Osmolality,Calculated 287 (280-300); Potassium 3.2 mEq/L (3.5-5.1); Sodium 136 mEq/L (136-145); eGFR For African Americans > 60 (> 60); eGFR For Non-African Americans 50 (> 60)
[2020-07-01 11:37] VITALS: BP 121/73
[2020-07-01] MEDS ORDERED: Potassium Chloride Elixir 20 MEQ/15 ML UDC PO ONE (12:04)
== END 2020-07-01 15:32 | DRG 683 ==
LOC: 3BNU 12:47 → EMEROOARM 12:47 → SUATTDRO 16:22 → 3BNU 16:49 → SUATTDRO 06-24 21:42
PROVIDERS: ADMIT Internal Medicine; ATTEND Family Medicine